=== PATIENT | male | born 1945 | race Caucasian/White ===

== ENCOUNTER 2018-11-16 11:14 | Inpatient (IN) | payer MEDICARE, OTHER ==
[~2018-11-16] VITALS: Ht 177.8 cm; Wt 84.1 kg
[2018-11-16] MEDS ORDERED: ATEN25 PO (11:32)
[2018-11-16] MEDS ORDERED: LISI5 PO (11:32)
[2018-11-16 11:55] LABS: BASOPHILS ABSOLUTE AUTO 0.07 K/mm3 (0.00-0.23); BASOPHILS PERCENT AUTO 1 % (0-2); EOSINOPHILS ABSOLUTE AUTO 0.13 K/mm3 (0.00-0.68); EOSINOPHILS PERCENT AUTO 1 % (0-6); Hematocrit 33.4 % (37.0-53.0); Hemoglobin 11.8 g/dL (13.5-17.5); IMMATURE GRAN ABSOLUTE AUTO 0.23 K/mm3 (0.00-0.10); IMMATURE GRAN PERCENT AUTO 2 % (0-1); LYMPHOCYTES PERCENT AUTO 8 % (21-46); MONOCYTES ABSOLUTE AUTO 1.52 K/mm3 (0.16-1.47); MONOCYTES PERCENT AUTO 12 % (4-13); Mean Corpuscular HGB 35.5 pg (26.0-34.0); Mean Corpuscular HGB Conc 35.3 g/dL (31.5-36.5); Mean Corpuscular Volume 101 fL (80-100); Mean Platelet Volume 12.8 fL (9.1-12.4); NEUTROPHILS ABSOLUTE AUTO 10.24 K/mm3 (1.96-9.15); NEUTROPHILS PERCENT AUTO 78 % (41-73); Platelet Count 101 K/mm3 (150-400); RDW Coefficient Variation 14.2 % (11.7-14.2); Red Blood Cell Count 3.32 M/mm3 (4.30-5.90); White Blood Cell Count 13.19 K/mm3 (4.00-11.30)
[2018-11-16 12:26] LABS: Alanine Aminotransfer (ALT/SGP 71 U/L (12-78); Albumin, Blood 2.5 g/dL (3.4-5.0); Albumin/Globulin Ratio 0.5 (0.8-1.8); Alk Phos 260 U/L (50-136); Anion Gap 13 mmol/L (6-16); Aspartate Aminotrans (AST/SGOT 77 U/L (12-37); Bilirubin, Total 1.1 mg/dL (0.1-1.0); Blood Urea Nitrogen 88 mg/dL (8-24); Bun/Creatinine Ratio 32.6 (12.0-20.0); CO2, Blood 13 mmol/L (21-32); Calcium, Blood 8.7 mg/dL (8.5-10.1); Chloride, Blood 112 mmol/L (98-108); Glomerular Filtration Rate 25 (60-); Glucose, Blood 112 mg/dL (70-99); Potassium, Blood 3.6 mmol/L (3.5-5.5); Sodium, Blood 138 mmol/L (136-145); Total Protein, Blood 7.5 g/dL (6.4-8.2); Troponin I <0.015 ng/mL (0.000-0.040)
[2018-11-16 13:34] LABS: Source, Urine Voided
[2018-11-16 14:07] LABS: Bilirubin, Urine Neg (Neg); Blood, Urine Neg (Neg); Glucose Qualitative, Urine Neg (Neg); Ketones, Urine Neg (Neg); Leukocyte Esterase, Urine Neg (Neg); Nitrite, Urine Neg (Neg); Protein, Urine Neg (Neg); Urobilinogen, Urine NORM (Normal)
[2018-11-16 14:20] LABS: Appearance, Urine Clear (Clear); Color, Urine Yellow (P-Yellow)
[2018-11-16 15:45] LABS: Source, Urine Voided
[2018-11-16 15:48] LABS: Bilirubin, Urine Neg (Neg); Blood, Urine Neg (Neg); Glucose Qualitative, Urine Neg (Neg); Ketones, Urine Neg (Neg); Leukocyte Esterase, Urine Neg (Neg); Nitrite, Urine Neg (Neg); Protein, Urine 1+ (Neg); Urobilinogen, Urine NORM (Normal)
[2018-11-16 16:01] LABS: Appearance, Urine Clear (Clear); Color, Urine Yellow (P-Yellow)
--- NOTE | 2018-11-16 16:13 | NUR ---
TELE PLACED TELE, PT NSR WITH PAC'S AT 78
[2018-11-16 16:43] LABS: Adenovirus Not Detected (NOT DETECT); Bordetella pertussis Not Detected (NOT DETECT); Chlamydophila pneumoniae Not Detected (NOT DETECT); Coronavirus 229E Not Detected (NOT DETECT); Coronavirus HKU1 Not Detected (NOT DETECT); Coronavirus NL63 Not Detected (NOT DETECT); Coronavirus OC43 Not Detected (NOT DETECT); Human Metapneumovirus Not Detected (NOT DETECT); Human Rhinovirus/Enterovirus Not Detected (NOT DETECT); Influenza A Not Detected (NOT DETECT); Influenza A/2009-H1 Not Detected (NOT DETECT); Influenza A/H1 Not Detected (NOT DETECT); Influenza A/H3 Not Detected (NOT DETECT); Influenza B Not Detected (NOT DETECT); Mycoplasma pneumoniae Not Detected (NOT DETECT); Parainfluenza Virus 1 Not Detected (NOT DETECT); Parainfluenza Virus 2 Not Detected (NOT DETECT); Parainfluenza Virus 3 Not Detected (NOT DETECT); Parainfluenza Virus 4 Not Detected (NOT DETECT); Respiratory Syncytial Virus Not Detected (NOT DETECT)
--- NOTE | 2018-11-16 17:29 | NUR ---
Echocardiogram completed.
--- NOTE | 2018-11-16 17:38 | NUR ---
SUMMARY PT ADMITTED FROM THE ER FOR PNEUMONIA, PT ABLE TO TRANSFER SELF FROM THE GURNEY TO THE BED, PT IS ALERT AND ORIENTED, STANDBY ASSIST, TAKES MEDS WHOLE, FEEDS SELF, DENIES PAIN, ORIENTED PT TO THE ROOM AND CALL SYSTEM, VSS, NO ACUTE CHANGES, WILL CONT TO MONITOR
--- NOTE | 2018-11-17 01:41 | NUR ---
PT HAD TWO EPISODES OF BRADYCARDIA IN THE 30'S. PT PULSE RATE INCREASED WHEN PT WAS AWAKE. PT REMAINED NORMOTENSIVE. WILL CONTINUE TO MONITOR.
--- NOTE | 2018-11-17 04:28 | NUR ---
SHIFT SUMMARY PT HAD NOTED EPISODES OF BRADYCARDIA IN 30'S. PT ASSESSED AND PT RATE INCREASED UPON WAKING. PT VSS. PT REPORTED NO ISSUES RELATED TO RATE IN THE PAST. PT DENIES CX PAIN OR SOB. PT HAS HAD DIFFICULTY SLEEPING THIS SHIFT. BRADYCARDIA EPISODES DID OCCUR WHEN PT WAS ASLEEP. PT CURRENTLY SLEEPING AND BREATHING EASY. CALL LIGHT IN REACH.
[2018-11-17 05:30] LABS: BASOPHILS ABSOLUTE AUTO 0.06 K/mm3 (0.00-0.23); BASOPHILS PERCENT AUTO 1 % (0-2); EOSINOPHILS ABSOLUTE AUTO 0.13 K/mm3 (0.00-0.68); EOSINOPHILS PERCENT AUTO 1 % (0-6); Hematocrit 31.3 % (37.0-53.0); Hemoglobin 10.8 g/dL (13.5-17.5); IMMATURE GRAN ABSOLUTE AUTO 0.26 K/mm3 (0.00-0.10); IMMATURE GRAN PERCENT AUTO 2 % (0-1); LYMPHOCYTES ABSOLUTE AUTO 1.36 K/mm3 (0.84-5.20); LYMPHOCYTES PERCENT AUTO 12 % (21-46); MONOCYTES ABSOLUTE AUTO 1.52 K/mm3 (0.16-1.47); MONOCYTES PERCENT AUTO 13 % (4-13); Mean Corpuscular HGB 34.8 pg (26.0-34.0); Mean Corpuscular HGB Conc 34.5 g/dL (31.5-36.5); Mean Corpuscular Volume 101 fL (80-100); Mean Platelet Volume 12.1 fL (9.1-12.4); NEUTROPHILS ABSOLUTE AUTO 8.24 K/mm3 (1.96-9.15); NEUTROPHILS PERCENT AUTO 71 % (41-73); Platelet Count 91 K/mm3 (150-400); RDW Coefficient Variation 14.4 % (11.7-14.2); RDW Standard Deviation 53.1 fL (35.1-46.3); White Blood Cell Count 11.57 K/mm3 (4.00-11.30)
[2018-11-17 05:41] LABS: Bun/Creatinine Ratio 34.8 (12.0-20.0); Calcium, Blood 8.3 mg/dL (8.5-10.1); Creatinine, Blood 1.87 mg/dL (0.60-1.20); Potassium, Blood 3.8 mmol/L (3.5-5.5)
[2018-11-17 06:52] LABS: Percent Saturation 41.9 % (20.0-50.0)
[2018-11-17 07:27] LABS: Thyroid Stimulating Hormone 1.62 uIU/mL (0.360-4.800)
--- NOTE | 2018-11-17 19:05 | NUR ---
PT. LYING QUIETLY, NO NOTEABLE CHANGES THIS SHIFT. SPOUSE HAS BEEN WITH PT. MOST OF THE DAY. IV LFA INFILTRATED AND ACCOUNTANT BOOKKEEPER AMANDA PLACED NEW POWER GLIDE.
--- NOTE | 2018-11-18 04:26 | NUR ---
SHIFT SUMMARY PT HAS SLEPT WELL T/O SHIFT. PT HAD NO COMPLAINTS OR ISSUES NOTED. PT CURRENTLY SLEEPING AND BREATHING EASY. CALL LIGHT IN REACH.
[2018-11-18 07:04] LABS: BASOPHILS ABSOLUTE AUTO 0.06 K/mm3 (0.00-0.23); BASOPHILS PERCENT AUTO 1 % (0-2); EOSINOPHILS ABSOLUTE AUTO 0.16 K/mm3 (0.00-0.68); EOSINOPHILS PERCENT AUTO 1 % (0-6); Hematocrit 30.9 % (37.0-53.0); Hemoglobin 10.7 g/dL (13.5-17.5); IMMATURE GRAN ABSOLUTE AUTO 0.43 K/mm3 (0.00-0.10); IMMATURE GRAN PERCENT AUTO 3 % (0-1); LYMPHOCYTES ABSOLUTE AUTO 1.39 K/mm3 (0.84-5.20); LYMPHOCYTES PERCENT AUTO 11 % (21-46); MONOCYTES ABSOLUTE AUTO 1.34 K/mm3 (0.16-1.47); MONOCYTES PERCENT AUTO 11 % (4-13); Mean Corpuscular HGB 34.5 pg (26.0-34.0); Mean Corpuscular HGB Conc 34.6 g/dL (31.5-36.5); Mean Corpuscular Volume 100 fL (80-100); Mean Platelet Volume 11.8 fL (9.1-12.4); NEUTROPHILS ABSOLUTE AUTO 9.17 K/mm3 (1.96-9.15); NEUTROPHILS PERCENT AUTO 73 % (41-73); Platelet Count 108 K/mm3 (150-400); RDW Coefficient Variation 14.4 % (11.7-14.2); White Blood Cell Count 12.55 K/mm3 (4.00-11.30)
[2018-11-18 07:15] LABS: Albumin, Blood 2.2 g/dL (3.4-5.0); Anion Gap 8 mmol/L (6-16); Blood Urea Nitrogen 37 mg/dL (8-24); Bun/Creatinine Ratio 30.6 (12.0-20.0); CO2, Blood 18 mmol/L (21-32); Calcium, Blood 8.5 mg/dL (8.5-10.1); Chloride, Blood 114 mmol/L (98-108); Creatinine, Blood 1.21 mg/dL (0.60-1.20); Glomerular Filtration Rate >60 (60-); Glucose, Blood 110 mg/dL (70-99); Phosphorus, Blood 2.3 mg/dL (2.5-4.9); Potassium, Blood 4.2 mmol/L (3.5-5.5); Sodium, Blood 140 mmol/L (136-145)
--- NOTE | 2018-11-18 17:55 | NUR ---
PT. ARRIVED TO FLOOR VIA BED. [place], PARTIQALLY BLIND REFUSING FOOD. BLE WITH DRESSINGS CD&I. COMFORT CARE PT. TAKES MEDS CRUSHED IN APPLESAUCE.
--- NOTE | 2018-11-18 18:23 | NUR ---
PT. SITTING IN BED VISITING WITH DAUGHTER, DINNER WAS HELD FOR PROCEDURE LATER THIS EVENING. DRINKING CONTRAST. ANOTHER TO BE GIVEN AT 2039 THEN AGAIN AT 2139. PT. A&O
--- NOTE | 2018-11-19 04:46 | NUR ---
SHIFT SUMMARY PT HAD REMAINED NPO AND DRANK HIS CONTRAST UNTIL HIS CT. PT RETURNED AND WENT TO SLEEP. PT HAS BEEN SLEEPING WELL SINCE CT. PT IS CURRENTLY SLEEPING AND BREATHING EASY. PT HAD NO ISSUES NOTED OR COMPLAINTS.
[2018-11-19 10:40] LABS: BASOPHILS ABSOLUTE AUTO 0.06 K/mm3 (0.00-0.23); BASOPHILS PERCENT AUTO 1 % (0-2); EOSINOPHILS ABSOLUTE AUTO 0.26 K/mm3 (0.00-0.68); EOSINOPHILS PERCENT AUTO 2 % (0-6); Hematocrit 29.6 % (37.0-53.0); Hemoglobin 10.2 g/dL (13.5-17.5); IMMATURE GRAN ABSOLUTE AUTO 0.65 K/mm3 (0.00-0.10); IMMATURE GRAN PERCENT AUTO 5 % (0-1); LYMPHOCYTES ABSOLUTE AUTO 1.11 K/mm3 (0.84-5.20); LYMPHOCYTES PERCENT AUTO 8 % (21-46); MONOCYTES ABSOLUTE AUTO 0.87 K/mm3 (0.16-1.47); MONOCYTES PERCENT AUTO 7 % (4-13); Mean Corpuscular HGB 34.8 pg (26.0-34.0); Mean Corpuscular HGB Conc 34.5 g/dL (31.5-36.5); Mean Corpuscular Volume 101 fL (80-100); Mean Platelet Volume 11.7 fL (9.1-12.4); NEUTROPHILS ABSOLUTE AUTO 10.26 K/mm3 (1.96-9.15); NEUTROPHILS PERCENT AUTO 78 % (41-73); Platelet Count 139 K/mm3 (150-400); RDW Coefficient Variation 14.4 % (11.7-14.2); RDW Standard Deviation 53.1 fL (35.1-46.3); Red Blood Cell Count 2.93 M/mm3 (4.30-5.90); White Blood Cell Count 13.21 K/mm3 (4.00-11.30)
[2018-11-19 10:53] LABS: International Normalized Ratio 1.36
[2018-11-19 10:57] LABS: Albumin, Blood 2.1 g/dL (3.4-5.0); Anion Gap 7 mmol/L (6-16); Blood Urea Nitrogen 25 mg/dL (8-24); Bun/Creatinine Ratio 25.7 (12.0-20.0); CO2, Blood 18 mmol/L (21-32); Calcium, Blood 7.9 mg/dL (8.5-10.1); Chloride, Blood 112 mmol/L (98-108); Creatinine, Blood 0.97 mg/dL (0.60-1.20); Glomerular Filtration Rate >60 (60-); Glucose, Blood 107 mg/dL (70-99); Phosphorus, Blood 1.9 mg/dL (2.5-4.9); Potassium, Blood 4.1 mmol/L (3.5-5.5); Sodium, Blood 137 mmol/L (136-145)
--- NOTE | 2018-11-19 16:56 | NUR ---
SUMMARY- PT A/O X3, INDEPENDANT IN HIS ROOM. DOZING ON OFF THROUGH SHIFT. LUNGS CLEAR BUT DIMINISHED, OCC DRY COUGH WITH NO PRODUCTION. TELE DC'D. TOLERATING FOOD AND FLUIDS. PLAN FOR LIVER BX 11/20 AM- UNABLE TO PERFORM TODAY BECAUSE PT HAD LOVENOX. WILL RELAY TO RN TO HOLD LOVENOX AM DOSE 11/20. AT BEDSIDE VISITING PT MOST OF THE AFTERNOON.
[2018-11-20 05:32] LABS: BASOPHILS PERCENT AUTO 1 % (0-2); EOSINOPHILS ABSOLUTE AUTO 0.42 K/mm3 (0.00-0.68); EOSINOPHILS PERCENT AUTO 3 % (0-6); Hematocrit 29.5 % (37.0-53.0); Hemoglobin 10.5 g/dL (13.5-17.5); IMMATURE GRAN ABSOLUTE AUTO 1.13 K/mm3 (0.00-0.10); IMMATURE GRAN PERCENT AUTO 7 % (0-1); LYMPHOCYTES ABSOLUTE AUTO 2.69 K/mm3 (0.84-5.20); LYMPHOCYTES PERCENT AUTO 17 % (21-46); MONOCYTES ABSOLUTE AUTO 1.01 K/mm3 (0.16-1.47); MONOCYTES PERCENT AUTO 6 % (4-13); Mean Corpuscular HGB 35.7 pg (26.0-34.0); Mean Corpuscular HGB Conc 35.6 g/dL (31.5-36.5); Mean Corpuscular Volume 100 fL (80-100); NEUTROPHILS ABSOLUTE AUTO 10.98 K/mm3 (1.96-9.15); NEUTROPHILS PERCENT AUTO 67 % (41-73); NRBC ABSOLUTE 0.02 K/mm3 (0.00-0.02); NRBC Auto 0.1 /100 WBC (0.0-0.2); RDW Coefficient Variation 14.6 % (11.7-14.2); RDW Standard Deviation 52.4 fL (35.1-46.3); Red Blood Cell Count 2.94 M/mm3 (4.30-5.90); White Blood Cell Count 16.33 K/mm3 (4.00-11.30)
[2018-11-20 05:33] LABS: Mean Platelet Volume 11.6 fL (9.1-12.4); Platelet Count 159 K/mm3 (150-400)
[2018-11-20 05:51] LABS: Alanine Aminotransfer (ALT/SGP 135 U/L (12-78); Albumin, Blood 2.1 g/dL (3.4-5.0); Albumin/Globulin Ratio 0.4 (0.8-1.8); Alk Phos 429 U/L (50-136); Anion Gap 8 mmol/L (6-16); Aspartate Aminotrans (AST/SGOT 154 U/L (12-37); Bilirubin, Total 3.2 mg/dL (0.1-1.0); Blood Urea Nitrogen 21 mg/dL (8-24); Bun/Creatinine Ratio 23.7 (12.0-20.0); CO2, Blood 18 mmol/L (21-32); Chloride, Blood 112 mmol/L (98-108); Creatinine, Blood 0.89 mg/dL (0.60-1.20); Globulin, Blood 4.7 g/dL (2.2-4.0); Glomerular Filtration Rate >60 (60-); Glucose, Blood 86 mg/dL (70-99); Potassium, Blood 4.7 mmol/L (3.5-5.5); Sodium, Blood 138 mmol/L (136-145); Total Protein, Blood 6.8 g/dL (6.4-8.2)
--- NOTE | 2018-11-20 05:53 | NUR ---
SHIFT SUMMARY NO ACUTE EVENTS OVERNIGHT. LEFT ARM POWERGLIDE PATENT WITH NO S/S OF INFECTION. PATIENT UP AD LAURA TO BATHROOM. PATIENT WITH INTERMITTENT HICCOUGHING THROUGHOUT NIGHT. WILL CONTINUE TO MONITOR.
--- NOTE | 2018-11-20 12:02 | NUR ---
PT ARRIVED BACK FROM LIVER BIOPSY, A/OX3, PLEASANT AND COOPERATIVE, APPEARS TO BE BREATHING EASILY ON RA, PT DENIES PAIN
--- NOTE | 2018-11-20 16:14 | NUR ---
PT IS A/OX3, PLEASANT AND COOPERATIVE, UP WITH MINIMAL STANDBY ASSIST TO THE BATHROOM, THE PT APPEARS TO BE BREATHING EASILY ON RA, TODAY THE PT WAS TAKEN TO CT FOR A LIVER BIOPSY AND SO FAR THIS AFTERNNON HAS TOLERATED THE PROCEDURE WELL, THE PT WAS MEDICATED X1 FOR PAIN AT THE BIOPSY SITE AND A COLD PACK AND HEAT PAD HAS BEEN APPLIED INTERMITTANTLY BY THE PT, IS AT THE BEDSIDE, CALL LIGHT IN REACH, WILL CONTINUE TO MONITOR AND ASSESS FOR CHANGES
[2018-11-21 04:54] LABS: Hematocrit 27.9 % (37.0-53.0); Hemoglobin 9.7 g/dL (13.5-17.5); Mean Corpuscular HGB 34.9 pg (26.0-34.0); Mean Corpuscular HGB Conc 34.8 g/dL (31.5-36.5); Mean Corpuscular Volume 100 fL (80-100); Mean Platelet Volume 11.1 fL (9.1-12.4); Platelet Count 196 K/mm3 (150-400); RDW Coefficient Variation 14.6 % (11.7-14.2); RDW Standard Deviation 53.2 fL (35.1-46.3); Red Blood Cell Count 2.78 M/mm3 (4.30-5.90); White Blood Cell Count 16.15 K/mm3 (4.00-11.30)
[2018-11-21 05:22] LABS: BASOPHILS ABSOLUTE MAN 0.16 K/mm3 (0.00-0.23); BASOPHILS PERCENT MAN 1 % (0-2); EOSINOPHILS ABSOLUTE MAN 0.48 K/mm3 (0.00-0.68); EOSINOPHILS PERCENT MAN 3 % (0-6); LYMPHOCYTES % ATYPICAL MANUAL 1 % (0-0); LYMPHOCYTES ABSOLUTE MAN 0.96 K/mm3 (0.84-5.20); LYMPHOCYTES PERCENT MAN 5 % (21-46); MONOCYTES PERCENT MAN 5 % (4-13); NEUTROPHILS ABSOLUTE MAN 13.72 K/mm3 (1.96-9.15); SEG NEUTROPHILS PERCENT MAN 85 % (41-73); TOTAL CELLS COUNTED 100
[2018-11-21 05:27] LABS: Anion Gap 7 mmol/L (6-16); Blood Urea Nitrogen 20 mg/dL (8-24); Bun/Creatinine Ratio 21.4 (12.0-20.0); CO2, Blood 20 mmol/L (21-32); Calcium, Blood 7.9 mg/dL (8.5-10.1); Chloride, Blood 110 mmol/L (98-108); Creatinine, Blood 0.94 mg/dL (0.60-1.20); Glomerular Filtration Rate >60 (60-); Glucose, Blood 90 mg/dL (70-99); Potassium, Blood 4.3 mmol/L (3.5-5.5); Sodium, Blood 137 mmol/L (136-145)
--- NOTE | 2018-11-21 06:29 | NUR ---
SHIFT SUMMARY PT IS A 73 Y/O MALE, ADMITTED FOR PNEUMONIA. HE IS A&O X 3, AND A SBA TO AMBULATE IN THE ROOM. PT DENIED ANY PAIN, THOUGH HE USED A HEATING PAD ON HIS ABDOMEN THROUGH THE NIGHT, NAUSEA OR SOB, THOUGH HE DID NOT SLEEP MUCH DURING THE NIGHT. HE HAD A LOW GRADE FEVER OF 100.6 IN THE EVENING, AND IT CAME DOWN TO 98.3 WITHOUT INTERVENTION. ALL OTHER VITALS STABLE. NO OTHER ACUTE CHANGES IN PT CONDITION NOTED. WILL CONTINUE TO MONITOR AND TREAT PER EMAR UNTIL HAND OFF TO DAY SHIFT.
--- NOTE | 2018-11-21 16:33 | NUR ---
PT IS A/OX3, PLEASANT AND COOPERATIVE, THE PT IS UP IND IN HIS ROOM, THE PT DENIED ANY PAIN T/O THE DAY, WAS AT THE BEDSIDE T/O THE DAY, PT APPEARS TO BE BREATHING EASILY ON RA, CALL LIGHT IN REACH, WILL CONTINUE TO MONITOR AND ASSESS FOR CHANGES
[2018-11-22 05:28] LABS: BASOPHILS ABSOLUTE AUTO 0.09 K/mm3 (0.00-0.23); BASOPHILS PERCENT AUTO 1 % (0-2); EOSINOPHILS ABSOLUTE AUTO 0.29 K/mm3 (0.00-0.68); EOSINOPHILS PERCENT AUTO 2 % (0-6); Hematocrit 27.5 % (37.0-53.0); Hemoglobin 9.5 g/dL (13.5-17.5); IMMATURE GRAN ABSOLUTE AUTO 1.07 K/mm3 (0.00-0.10); IMMATURE GRAN PERCENT AUTO 6 % (0-1); LYMPHOCYTES ABSOLUTE AUTO 1.61 K/mm3 (0.84-5.20); LYMPHOCYTES PERCENT AUTO 9 % (21-46); MONOCYTES ABSOLUTE AUTO 1.15 K/mm3 (0.16-1.47); MONOCYTES PERCENT AUTO 6 % (4-13); Mean Corpuscular HGB 34.8 pg (26.0-34.0); Mean Corpuscular HGB Conc 34.5 g/dL (31.5-36.5); Mean Corpuscular Volume 101 fL (80-100); Mean Platelet Volume 10.6 fL (9.1-12.4); NEUTROPHILS ABSOLUTE AUTO 14.16 K/mm3 (1.96-9.15); NEUTROPHILS PERCENT AUTO 77 % (41-73); Platelet Count 193 K/mm3 (150-400); RDW Coefficient Variation 14.9 % (11.7-14.2); RDW Standard Deviation 54.3 fL (35.1-46.3); Red Blood Cell Count 2.73 M/mm3 (4.30-5.90); White Blood Cell Count 18.37 K/mm3 (4.00-11.30)
[2018-11-22 06:03] LABS: Alanine Aminotransfer (ALT/SGP 81 U/L (12-78); Albumin/Globulin Ratio 0.4 (0.8-1.8); Alk Phos 336 U/L (50-136); Anion Gap 8 mmol/L (6-16); Aspartate Aminotrans (AST/SGOT 62 U/L (12-37); Blood Urea Nitrogen 18 mg/dL (8-24); Bun/Creatinine Ratio 20.8 (12.0-20.0); CO2, Blood 20 mmol/L (21-32); Calcium, Blood 7.8 mg/dL (8.5-10.1); Chloride, Blood 110 mmol/L (98-108); Creatinine, Blood 0.86 mg/dL (0.60-1.20); Globulin, Blood 4.6 g/dL (2.2-4.0); Glomerular Filtration Rate >60 (60-); Glucose, Blood 99 mg/dL (70-99); Magnesium, Blood 1.8 mg/dL (1.6-2.4); Potassium, Blood 4.3 mmol/L (3.5-5.5); Sodium, Blood 138 mmol/L (136-145); Total Protein, Blood 6.6 g/dL (6.4-8.2)
--- NOTE | 2018-11-22 06:09 | NUR ---
SHIFT SUMMARY PT A/O INDEPENDENT, NO C/O PAIN. HE WAS ABLE TO SLEEP OFF AND ON T/O NOC. CALL LIGHT IN REACH.
[2018-11-22 16:32] LABS: Alpha Feto Protein, Tumor Mkr 8.8 ng/mL (0.0-8.0); Cancer Antigen 19-9 87.8 U/mL (2.0-37.0)
--- NOTE | 2018-11-22 16:46 | NUR ---
PT AOX4 AND COOPERATIVE OF CARE. PT HAS BEEN RESTING IN BED ALL DAY WITH AT BEDSIDE. PT IS INDEPENDENT AND CALLS APPROPRIATELY. DENIES ANY PAIN AND NO DISTRESS NOTED.
--- NOTE | 2018-11-23 04:51 | NUR ---
SHIFT SUMMARY PT WAS MOVED FROM SCU TO 355. PT HAD NO ISSUES OR COMPLAINTS. PT WAS UP FREQUENTLY T/O THE SHIFT. PT CURRENTLY SLEEPING IN NO DISTRESS. CALL LIGHT IN REACH.
[2018-11-23] MEDS ORDERED: LEVFLO500 PO (09:38)
== END 2018-11-23 10:50 | disposition home or self-care (01) | DRG 194 ==
LOC: ER 11:14 → MEDS 14:01 → ENPENDDIS 11-23 08:43 → MEDS 11-23 10:50
PROVIDERS: Emergency Medicine; Internal Medicine; Internal Medicine Hematology & Oncology; ADMIT Internal Medicine
PROC: 0FB13ZX Excision of Right Lobe Liver, Percutaneous Approach, Diagnostic (ICD-10-PCS; principal; 2018-11-20)
DX: J18.9 Pneumonia, unspecified organism (principal); N17.9 Acute kidney failure, unspecified; C78.7 Secondary malignant neoplasm of liver and intrahepatic bile duct; E87.2 Acidosis; K74.60 Unspecified cirrhosis of liver; R16.0 Hepatomegaly, not elsewhere classified; R91.8 Other nonspecific abnormal finding of lung field; I10 Essential (primary) hypertension; D63.1 Anemia in chronic kidney disease; D63.8 Anemia in other chronic diseases classified elsewhere; I95.9 Hypotension, unspecified; Z79.899 Other long term (current) drug therapy; Z87.891 Personal history of nicotine dependence
CPT/HCPCS: 0099U; 36415; 47000; 71046; 71250; 74177; 77012; 80048; 80053; 80069; 81003; 82105; 82607; 82728; 82746; 83540; 83550; 83605; 83735; 83880; 84145; 84443; 84484; 85025; 85610; 86301; 87040; 88307; 88313; 88341; 88342; 93005; 93010; 93306; 96361; 96365; 98960; 99285-25; A9270; A9270-GY; J0456; J0696; J1650; J7030; J7050; J7120; Q9967

== ENCOUNTER 2019-01-25 19:15 | Inpatient (IN) | payer OTHER, MEDICARE ==
[~2019-01-25] VITALS: Ht 177.8 cm; Wt 64.4 kg
[~2019-01-25 19:15] MED LIST: ATEN25 PO; LEVFLO500 PO; LISI5 PO
[2019-01-25 19:45] LABS: BASOPHILS ABSOLUTE AUTO 0.16 K/mm3 (0.00-0.23); BASOPHILS PERCENT AUTO 1 % (0-2); EOSINOPHILS ABSOLUTE AUTO 0.16 K/mm3 (0.00-0.68); EOSINOPHILS PERCENT AUTO 1 % (0-6); Hematocrit 36.1 % (37.0-53.0); Hemoglobin 11.4 g/dL (13.5-17.5); IMMATURE GRAN ABSOLUTE AUTO 0.27 K/mm3 (0.00-0.10); IMMATURE GRAN PERCENT AUTO 1 % (0-1); LYMPHOCYTES ABSOLUTE AUTO 4.42 K/mm3 (0.84-5.20); LYMPHOCYTES PERCENT AUTO 18 % (21-46); MONOCYTES ABSOLUTE AUTO 1.43 K/mm3 (0.16-1.47); MONOCYTES PERCENT AUTO 6 % (4-13); Mean Corpuscular HGB 34.7 pg (26.0-34.0); Mean Corpuscular HGB Conc 31.6 g/dL (31.5-36.5); Mean Corpuscular Volume 110 fL (80-100); Mean Platelet Volume 10.7 fL (9.1-12.4); NEUTROPHILS ABSOLUTE AUTO 17.56 K/mm3 (1.96-9.15); NEUTROPHILS PERCENT AUTO 73 % (41-73); Platelet Count 188 K/mm3 (150-400); RDW Coefficient Variation 14.3 % (11.7-14.2); RDW Standard Deviation 57.9 fL (35.1-46.3); Red Blood Cell Count 3.29 M/mm3 (4.30-5.90)
[2019-01-25 20:03] LABS: Alanine Aminotransfer (ALT/SGP 35 U/L (12-78); Albumin, Blood 2.3 g/dL (3.4-5.0); Albumin/Globulin Ratio 0.4 (0.8-1.8); Alk Phos 234 U/L (50-136); Anion Gap 4 mmol/L (6-16); Aspartate Aminotrans (AST/SGOT 58 U/L (12-37); Bilirubin, Total 0.5 mg/dL (0.1-1.0); Blood Urea Nitrogen 23 mg/dL (8-24); Bun/Creatinine Ratio 24.6 (12.0-20.0); CO2, Blood 24 mmol/L (21-32); Calcium, Blood 12.5 mg/dL (8.5-10.1); Chloride, Blood 108 mmol/L (98-108); Creatinine, Blood 0.94 mg/dL (0.60-1.20); Globulin, Blood 5.5 g/dL (2.2-4.0); Glomerular Filtration Rate >60 (60-); Glucose, Blood 118 mg/dL (70-99); Potassium, Blood 4.7 mmol/L (3.5-5.5); Sodium, Blood 136 mmol/L (136-145); Total Protein, Blood 7.8 g/dL (6.4-8.2)
[2019-01-25] MEDS ORDERED: BENZ100A PO (20:35)
[2019-01-25] MEDS ORDERED: CODEINE-GUAIFE120 ML PO (20:36)
[2019-01-25] MEDS ORDERED: TYLECOD3 PO (20:36)
[2019-01-26 02:07] LABS: Adenovirus Not Detected (NOT DETECT); Bordetella pertussis Not Detected (NOT DETECT); Chlamydophila pneumoniae Not Detected (NOT DETECT); Coronavirus 229E Not Detected (NOT DETECT); Coronavirus HKU1 Not Detected (NOT DETECT); Coronavirus NL63 Not Detected (NOT DETECT); Coronavirus OC43 Not Detected (NOT DETECT); Human Metapneumovirus Not Detected (NOT DETECT); Human Rhinovirus/Enterovirus Not Detected (NOT DETECT); Influenza A Not Detected (NOT DETECT); Influenza A/2009-H1 Not Detected (NOT DETECT); Influenza A/H1 Not Detected (NOT DETECT); Influenza A/H3 Not Detected (NOT DETECT); Influenza B Not Detected (NOT DETECT); Mycoplasma pneumoniae Not Detected (NOT DETECT); Parainfluenza Virus 1 Not Detected (NOT DETECT); Parainfluenza Virus 2 Not Detected (NOT DETECT); Parainfluenza Virus 3 Not Detected (NOT DETECT); Parainfluenza Virus 4 Not Detected (NOT DETECT); Respiratory Syncytial Virus Not Detected (NOT DETECT)
[2019-01-26 04:20] LABS: Hematocrit 32.7 % (37.0-53.0); Hemoglobin 10.8 g/dL (13.5-17.5); Mean Platelet Volume 10.6 fL (9.1-12.4); Platelet Count 185 K/mm3 (150-400); RDW Coefficient Variation 14.4 % (11.7-14.2); RDW Standard Deviation 54.8 fL (35.1-46.3); Red Blood Cell Count 3.09 M/mm3 (4.30-5.90); White Blood Cell Count 23.42 K/mm3 (4.00-11.30)
[2019-01-26 04:23] LABS: Mean Corpuscular Volume 106 fL (80-100)
[2019-01-26 04:40] LABS: Alanine Aminotransfer (ALT/SGP 29 U/L (12-78); Albumin, Blood 2.2 g/dL (3.4-5.0); Albumin/Globulin Ratio 0.4 (0.8-1.8); Alk Phos 220 U/L (50-136); Anion Gap 6 mmol/L (6-16); Aspartate Aminotrans (AST/SGOT 48 U/L (12-37); Bilirubin, Total 0.6 mg/dL (0.1-1.0); Blood Urea Nitrogen 19 mg/dL (8-24); Bun/Creatinine Ratio 20.3 (12.0-20.0); CO2, Blood 24 mmol/L (21-32); Calcium, Blood 11.3 mg/dL (8.5-10.1); Chloride, Blood 110 mmol/L (98-108); Creatinine, Blood 0.94 mg/dL (0.60-1.20); Globulin, Blood 5.4 g/dL (2.2-4.0); Glomerular Filtration Rate >60 (60-); Glucose, Blood 105 mg/dL (70-99); Potassium, Blood 4.4 mmol/L (3.5-5.5); Sodium, Blood 140 mmol/L (136-145); Total Protein, Blood 7.6 g/dL (6.4-8.2)
--- NOTE | 2019-01-26 05:55 | NUR ---
SHIFT SUMMARY PT SLEEPING IN ROOM COMFORTABLY AT THIS TIME. NO ACUTE CHANGES IN STATSU SINCE ARRIVAL. PT SLEPT WELL IN ROOM T/O NIGHT, PT ABLE TO AMBULATE TO RR W/ SBA TO VOID. RESP EVEN UNLABORED ON RA W/ SATS >92%. PT DENIES CP OR SOB. PT DOSE HAVE HACKING CONTINUOUS COUGH, WAS MEDICATED PER EMAR, AND PT HAS BEEN ABLE TO SLEEP WELL SINCE. DENIES OTHER NEEDS. PT AWARE OF NEED FOR SPUTUM SAMPLE AND WILL ATTEMPT WHEN ABLE TO HAVE PRODUCTIVE COUGH. CALL LIGHT IN REACH.
--- NOTE | 2019-01-26 09:47 | NUR ---
PAUSES PREPARED TO GIVE CARDIZEM PER ORDERS, PRODUCTS MECHANICAL DESIGN ENGINEER REPORTED PT HAD 4.7 SECOND PAUSE. DID NOT GIVE CARDIZEM AND DR LEONARDO NOTIFIED. NOTIFIED DR NEWBY PER DR LEONARDO'S PHONE ORDER.
--- NOTE | 2019-01-26 11:36 | NUR ---
PT CONVERTED TO NSR @ APPROXIMATELY 1030 AM.
--- NOTE | 2019-01-26 15:06 | NUR ---
DR VALERO IN TO SEE PT.
--- NOTE | 2019-01-26 15:27 | NUR ---
PACER PADS PLACED.
--- NOTE | 2019-01-26 15:52 | NUR ---
pt to [employer] conservation laborer
--- NOTE | 2019-01-26 16:19 | NUR ---
REPORT CALLED TO KENDRICK Payan RN IN ICU.
--- NOTE | 2019-01-26 16:30 | NUR ---
WHITE SWEATER LEFT IN PCU 16 ROOM TAKEN TO ICU 6 ROOM. ICU NURSE INFORMED THAT IT WAS PUT IN ICU ROOM
--- NOTE | 2019-01-26 17:02 | NUR ---
Recieved report from Renata RN in PCU and Dimitris RN from Lead Business Analyst. He arrived on ICU 6 bed. Hooked up to monitor and he is SR 70 and systolic 90-100's with sat in the mid to upper 90%'s. Patient alert and able to communicate his needs. Transvenus pacer site right groin and no swelling or bleeding and dressing C/D/I.. Family at bedside.
--- NOTE | 2019-01-26 17:40 | NUR ---
At 1743 patient had several pauses and converted back to atrial fib. Patient states feels no different with pauses or rhythm change. Rate 140's. Turned on pacer.
--- NOTE | 2019-01-26 20:00 | NUR ---
ASSUMED CARE OF PT AT 1915. REPORT RECEIVED AT BEDSIDE. PT PRESENTS IN BED. ALERT AND ORIENTED. PLEASANT AND COOPERATIVE WITH CARE AND ASSESSMENT. DENIES COMPLAINTS AT THIS TIME. RIGHT GROIN ACCESS FOR TRANSVENOUS PACER SITE SOFT WITHOUT HEMATOMA OR OOZING. PER MONITORING. PT HAS CAPTURE WITH PACER APPROPRIATELY. WILL REVIEW CHART AND PLAN OF CARE FOR THIS PT.
--- NOTE | 2019-01-26 22:00 | NUR ---
PT CALLS APPROPIATELY FOR ASSIST WITH URINAL TO VOID. PT HAS A SOMEWHAT FLAT AFFECT THOUGH REMAINS APPROPRIATE. IS OPEN WITH DISCUSSING HIS CANCER, AND HAVING TO HAVE PACER. TEACHING DONE ON TRANSVENOUS PACER. DR NEWBY HAD COME BY TO SEE PT EARLIER THIS EVENING. ORDER RECEIVED FOR METOPROLOL TO HELP CONTROL HEART RATE. PT TOOK THIS DOSE. WILL MONITOR.
--- NOTE | 2019-01-27 03:00 | NUR ---
PT RESTING AT THIS TIME. NO COMPLAINTS OR S/S DISTRESS AT THIS TIME.
[2019-01-27 03:48] LABS: Hematocrit 31.6 % (37.0-53.0); Hemoglobin 10.4 g/dL (13.5-17.5); Mean Corpuscular HGB Conc 32.9 g/dL (31.5-36.5); Mean Corpuscular Volume 106 fL (80-100); Mean Platelet Volume 10.5 fL (9.1-12.4); Platelet Count 146 K/mm3 (150-400); RDW Coefficient Variation 14.6 % (11.7-14.2); RDW Standard Deviation 56.1 fL (35.1-46.3); Red Blood Cell Count 2.97 M/mm3 (4.30-5.90)
[2019-01-27 04:03] LABS: Anion Gap 6 mmol/L (6-16); Blood Urea Nitrogen 16 mg/dL (8-24); Bun/Creatinine Ratio 17.9 (12.0-20.0); CO2, Blood 23 mmol/L (21-32); Calcium, Blood 9.8 mg/dL (8.5-10.1); Chloride, Blood 112 mmol/L (98-108); Creatinine, Blood 0.89 mg/dL (0.60-1.20); Glomerular Filtration Rate >60 (60-); Glucose, Blood 87 mg/dL (70-99); Potassium, Blood 4.3 mmol/L (3.5-5.5); Sodium, Blood 141 mmol/L (136-145)
--- NOTE | 2019-01-27 06:20 | NUR ---
CALL MADE TO DR DEAN CONCERNING AM LABS. ORDERS RECEIVED FOR ELECTROLYTE REPLACEMENT. PT HAS BEEN MEDICATED SEVERAL TIMES THIS NIGHT WITH FENTANYL WITH GOOD RESULTS. ONCE WITH ZOFRAN FOR COMPLAINT OF NAUSEA. NO FURTHER COMPLAINTS AFTER ZOFRAN. PT PROVIDED WITH [place] FOR SELF SUCTIONING OF SPUTUM AND SECRETIONS THAT HE IS ABLE TO EXPECTORATE. PT STATES THAT THIS IS VERY HELPFUL FOR HIM. HAVE TITRATED OFF THE PRESSORS AT THIS TIME. WILL CONTINUE TO MONITOR FOR MAP REMAINING > 65. WILL MONITOR PT, AND WILL REPORT OFF TO ONCOMING RN.
--- NOTE | 2019-01-27 06:33 | NUR ---
PT DENIES COMPLAINTS THROUGH THIS NIGHT. HAS VOIDED Q.S. HAS AT TIMES HAD 100 PERCENT PACING AT A RATE OF 40 BPM. RETURNS QUICKLY TO AFIB WITH VARYING RATES 70'S TO 140'S. PT REMAINS ASYMPTOMATIC WITH ALL RATES AND PACING.
--- NOTE | 2019-01-27 07:43 | NUR ---
recieved report from Bhupinder ALMARAZ. Patient supine in bed with HOB at 30 degrees. He id awake and oriented and is able to communicate his needs. He is on RA and sats mid to upper 90%'s. He has 20 ga IV in RFA dressing intact and site WNL's and is infusing NS TKO. He uses urinal appropriately. He denies ant pain or current needs when in room. He has sheath in right groin fro tranvenus pacer and dressing C/D/I and no blood or swelling at site . Patient knows not to get out of bed while sheath in place.
--- NOTE | 2019-01-27 09:25 | NUR ---
Patient tolerated liquids for breakfast and was not very hungry for the rest. He has been rest with a slightly flat affect. He continues to deny any pain or needs. He converted to NSR rate 70 at 0924.
--- NOTE | 2019-01-27 11:50 | NUR ---
Patient states no apetite for lunch. His systolic 80-100's with MAP >65. He remains in SR with occassional paced beats in the 70's. Remains with flat affect and answers softly. is here at bedside.. He reamisn on RA and sats mid to upper 90%'s.
--- NOTE | 2019-01-27 14:10 | NUR ---
Patient has had friends in room. He requested some [place] juice. His systolic up to 100's and remains in SR with occassional paced beats with rate of 70's. He denies any needs or complaints of pain,
--- NOTE | 2019-01-27 16:52 | NUR ---
No significant changes with patient. He remains on bedrest. He continues in SR with occasional paced beats. He is on RA and sats mid to upper 90%'s. He denies any pain or needs and continues to stae poor apetite. He is NPO after midnight for pacer at 1230 pm.
--- NOTE | 2019-01-28 00:13 | NUR ---
NO NEW CHANGES. PT DENIES NEEDS OR WANTS AT THIS TIME. RIGHT GROIN VENOUS PACER SITE WNL, DRESSING CDI. HR 39-150. PT USING URINAL PRN WITHOUT DIFFICULTY. PT HAD DRUNK APPRX 3/4 OF AN ENSURE LIQUID SUPPLEMENT PRIOR TO MIDNIGHT. WILL CONTINUE TO MONITOR.
[2019-01-28 03:23] LABS: Hematocrit 34.7 % (37.0-53.0); Hemoglobin 11.4 g/dL (13.5-17.5); Mean Corpuscular HGB 34.8 pg (26.0-34.0); Mean Corpuscular HGB Conc 32.9 g/dL (31.5-36.5); Mean Corpuscular Volume 106 fL (80-100); Mean Platelet Volume 10.5 fL (9.1-12.4); Platelet Count 168 K/mm3 (150-400); RDW Coefficient Variation 14.6 % (11.7-14.2); RDW Standard Deviation 56.4 fL (35.1-46.3); Red Blood Cell Count 3.28 M/mm3 (4.30-5.90)
[2019-01-28 03:38] LABS: Anion Gap 7 mmol/L (6-16); Blood Urea Nitrogen 19 mg/dL (8-24); Bun/Creatinine Ratio 20.7 (12.0-20.0); CO2, Blood 23 mmol/L (21-32); Calcium, Blood 10.9 mg/dL (8.5-10.1); Chloride, Blood 111 mmol/L (98-108); Creatinine, Blood 0.92 mg/dL (0.60-1.20); Glomerular Filtration Rate >60 (60-); Glucose, Blood 92 mg/dL (70-99); Sodium, Blood 141 mmol/L (136-145)
--- NOTE | 2019-01-28 07:47 | NUR ---
SHIFT SUMMARY: PT REMAINED A+O T/O NOC. PT ASYMPTOMATIC WITH NO COMPLAINTS. HR VARIED T/O NOC RANGING FROM 39-160'S. TOWARDS END OF SHIFT PT HR INCREASED TO 160'S. DR. NEWBY NOTIFIED AND GIVEN UPDATE. NEW ORDER FOR AMIODARONE GIVEN AND STARTED. PT CONTINUES THIS AM WITH NO COMPLAINTS. REPORT GIVEN TO ONCOMING RUFINA PAIGE. DR. ABEBE IN DEPARTMENT.
--- NOTE | 2019-01-28 10:42 | NUR ---
0800 PT IS A/O WITH VSS BUT HR IS PACED TO 130-140 RANGE NOTED AT TIMES. PT PACER SITE IS INTACT AND PT ADMITS TO OCC SMALL TWINGE FROM PACER. PT VOIDING W/O DISTRESS AND INDEPENDENTLY. SMALL SMEAR OF STOOL NOTED AND PT REQUESTING ASSIST TO CLEAN UP. PT DOES HAVE DRY NONPRODUCTIVE COUGH. IVF'S NOTED PER FLOWSHEET.
--- NOTE | 2019-01-28 11:19 | NUR ---
AMIODARONE GTT DEC. NOTED
--- NOTE | 2019-01-28 15:13 | NUR ---
PT SLEEPING AND RESTING WELL W/O DISTRESS. RHYTHM CONT TO HAVE OCC A-FIB MIXED WITH PACED IN THE 40 RANGE AND THEN OCC SINUS BEATS AND BACK TO A-FIB IN THE 130-140 RANGE. IN QUIETLY VISITING.
--- NOTE | 2019-01-28 18:00 | NUR ---
PT RESTING COMFORTABLY TOWARDS END OF SHIFT. FAMILY IS AT BEDSIDE. PT IN A-FIB TYPICALLY, WILL DROP INTO NORMAL SINUS OCCASIONALLY. MEAL TRAY GIVEN.
[2019-01-28 18:03] LABS: Hematocrit 36.1 % (37.0-53.0); Hemoglobin 11.9 g/dL (13.5-17.5); Mean Corpuscular HGB 34.9 pg (26.0-34.0); Mean Corpuscular Volume 106 fL (80-100); Mean Platelet Volume 10.5 fL (9.1-12.4); Platelet Count 166 K/mm3 (150-400); RDW Coefficient Variation 14.7 % (11.7-14.2); Red Blood Cell Count 3.41 M/mm3 (4.30-5.90); White Blood Cell Count 26.76 K/mm3 (4.00-11.30)
[2019-01-28 18:26] LABS: BAND PERCENT MAN 3 % (0-8); BASOPHILS PERCENT MAN 0 % (0-2); EOSINOPHILS ABSOLUTE MAN 0.53 K/mm3 (0.00-0.68); EOSINOPHILS PERCENT MAN 2 % (0-6); LYMPHOCYTES ABSOLUTE MAN 1.33 K/mm3 (0.84-5.20); LYMPHOCYTES PERCENT MAN 5 % (21-46); MONOCYTES ABSOLUTE MAN 1.07 K/mm3 (0.16-1.47); MONOCYTES PERCENT MAN 4 % (4-13); NEUTROPHILS ABSOLUTE MAN 23.81 K/mm3 (1.96-9.15); SEG NEUTROPHILS PERCENT MAN 86 % (41-73); TOTAL CELLS COUNTED 100
--- NOTE | 2019-01-28 20:00 | NUR ---
FLAT AFFECT AND REVIEWED CONDITION AND INVOLVED PT IN CONVERSING ABOUT CONDITION. VERY GUARDED ABOUT TALKING AND ASKING QUESTIONS,.DENIES PAIN. AWARE AND FOLLOWS INSTRUCTIONS ABOUT KEEPING RT LEG STRAIGHT,.ENC TO HAVE STAFF HELP W/ REPOSITIONING AND GETTING OFF BACK. UNINTERESTED IN HELP AND SAYS HE SHIFTS HIP PERIODICALLY. RT GROIN SITE WNL . AMIODARONE GTT AT .5MG/MIN. NOTED AT THIS TIME AF RVR AT 145 RATE. SEEMS TO BE SUSTAINING., LOPRESSOR DUE PO AND BP PARAMETER ACCEPTABLE. NOTED RT AC IV SITE SEEMS A LITTLE RED AND DENIES TENDERNESS. GOOD BLOOD RETURN BUT CHANGED TO OTHER IV SITE, RT WRIST AREA WHICH WAS SALINE LOCKED NOW. FLUSHED RT AC AND NO SENSITIVITY. ENC TO COUGH AND DEEP BREATHE. EACH DEEP BREATH PROMOTES A DRY COUGH. NO SPUTUM PRODUCTION. SATS WNL ON RA.NO CP OR OTHER PAIN. HR UNRELATED TO ACTIVITY.
[2019-01-29 03:22] LABS: Hematocrit 36.4 % (37.0-53.0); Mean Corpuscular HGB 34.8 pg (26.0-34.0); Mean Corpuscular Volume 106 fL (80-100); Mean Platelet Volume 10.3 fL (9.1-12.4); Platelet Count 164 K/mm3 (150-400); RDW Coefficient Variation 14.6 % (11.7-14.2); RDW Standard Deviation 55.8 fL (35.1-46.3); Red Blood Cell Count 3.45 M/mm3 (4.30-5.90); White Blood Cell Count 24.71 K/mm3 (4.00-11.30)
[2019-01-29 03:40] LABS: Anion Gap 6 mmol/L (6-16); Blood Urea Nitrogen 24 mg/dL (8-24); Bun/Creatinine Ratio 21.1 (12.0-20.0); CO2, Blood 23 mmol/L (21-32); Calcium, Blood 11.2 mg/dL (8.5-10.1); Chloride, Blood 110 mmol/L (98-108); Creatinine, Blood 1.14 mg/dL (0.60-1.20); Glomerular Filtration Rate >60 (60-); Glucose, Blood 110 mg/dL (70-99); Sodium, Blood 139 mmol/L (136-145)
--- NOTE | 2019-01-29 05:45 | NUR ---
SHIFT SUMMARY. DENIES ANY DISCOMFORT.TURNED FOR PARTIAL BATH/ DILEEP CARE . LUNGS CLEAR. MORE DIMINISHED RT LUNG ALLISON. LAST HALF OF SHIFT RARE AF RVR . MOSTLY SR 70'S AND OCCASIONAL PACED, 40-60, NO ACUTE CHANGES. NO SPUTUM PRODUCTION.
--- NOTE | 2019-01-29 07:45 | NUR ---
ASSUMED CARE / DR ABEBE: REPORT RECEIVED FROM MARCO ANTONIO Payan RN. ASSUMED CARE OF THIS PT AT APPROX 0700. ON ASSESSMENT, THE PT IS A&O, PLEASANT & COOPERATIVE W/ CARE. PT ON RA W/ O2 SATS > 92%. MONITOR SHOWS SINUS ARRHYTHMIA W/ OCCASIONAL PACED BEATS. HE DENIES PAIN OR DYSPNEA, STS OCCASIONAL DRY COUGH. PLAN IS FOR POSSIBLE PACER PLACEMENT TODAY. PT HAS BEEN NPO SINCE MN. PROVIDER AT BEDSIDE TO SEE PT. HE STS THERE IS CONCERN FOR INFECTION VS MALIGNANCY W/ ELEVATED WBC COUNT. DR WALDRON HAS BEEN CONSULTED REGARDING THIS. NO CHANGES AT THIS TIME. WILL CONTINUE TO MONITOR & UPDATE NEEDED.
--- NOTE | 2019-01-29 08:38 | NUR ---
DR WASHINGTON: PROVIDER HAS BEEN AT BEDSIDE TO SEE PT. HE STS THAT HE WOULD LIKE THE PT's WBC COUNT TO BE UNDER 20, BUT IDEALLY UNDER 15. NO PERMANENT PACER PLACEMENT TODAY. PT CAN EAT TODAY & IS TO BE NPO AFTER MN AGAIN TONIGHT. AMIO DRIP IS DISCUSSED PT HAS RECEIVED 24 HRS OF IV AMIO AT THIS TIME. ORDERS PLACED TO START PO AMIO. TV PACER REMAINS INTACT TO R GROIN. WILL CONTINUE TO MONITOR & UPDATE NEEDED.
--- NOTE | 2019-01-29 17:27 | NUR ---
SHIFT SUMMARY: NO ACUTE CHANGES THIS SHIFT. PT REMAINS A&O, PLEASANT & COOPERATIVE. TV PACER SITE TO R GROIN REMAINS WNL W/ NO BLEEDING, BRUISING OR HEMATOMA FORMATION NOTED AROUND THE SITE. TV PACER SETTINGS UNCHANGED. MONITOR SHOWS NSR W/ OCCASIONAL PACED BEATS & PVC's. PT CONTINUES HAVING AN OCCASIONAL NONPRODUCTIVE COUGH & REMAINS ON RA W/ O2 SATS > 92%. PT VOIDING & HAVING BMs W/O DIFFICULTY. WILL CONTINUE TO MONITOR & REPORT OFF TO ONCOMING RN.
--- NOTE | 2019-01-29 18:18 | NUR ---
DR. NEWBY AT BEDSIDE, MELONY ALMARAZ UPDATED HIM OF PT'S STATUS.
--- NOTE | 2019-01-29 18:46 | NUR ---
DR NEWBY: PROVIDER AT BEDSIDE TO SEE PT. HE STS NO CHANGES AT THIS TIME & IS HOPEFUL THAT THE PT WILL BE ABLE TO RECEIVE PERMANENT PACER PLACEMENT TOMORROW.
--- NOTE | 2019-01-29 19:51 | NUR ---
ASSUMED CARE OF PT AT 1915. REPORT RECEIVED AT BEDSIDE. PT PRESENTS IN BED. ALERT AND ORIENTED. PLEASANT AND COOPERATIVE WITH CARE AND ASSESSMENT. DOES HAVE FLAT AFFECT. RIGHT GROIN SITE CHECKED WITH OFFGOING RN. NO OOZING OR HEMATOMA. WILL REVIEW CHART AND PLAN OF CARE FOR THIS PT.
--- NOTE | 2019-01-29 21:53 | NUR ---
PT CALLS APPROPRIATELY FOR URINAL AND FOR BEDPAN. HAS LOOSE SMALL BM AND IS ABLE TO VOID Q.S. PT DENINES COMPLAINTS OF PAIN OR DISTRESS. PT CURRENTLY IN A-FIB WHICH HAD CONVERTED FROM NSR TO AFIB AT APPROX 1730 THIS DAY. TRANSVENOUS PACER REMAINS WITH CAPTURE. SETTINGS HAVE BEEN CHECKED AND VERIFIED. DID TEACHING WITH PT ON ADVANCING FROM TRANSVENOUS PACER TO IMPLANTED. DISCUSSED ELEVATED WBC'S. PT DEMONSTRATES UNDERSTANDING OF PROCESS. WILL CONTINUE TO MONITOR PT.
--- NOTE | 2019-01-30 00:33 | NUR ---
PT HAS PERIODS WHEREAS HE CONVERTS TO NSR PER MONITOR. THEN REVERTS BACK TO A-FIB WITH RVR. DID TAKE HIS HS PO AMIODARONE WELL HIS METOPROLOL. HAS OCCASSIONAL PACED BEATS. PT ASYMPTOMATIC WITH VARYING HEART RATES AND RHYTHM. WILL CONTINUE TO MONITOR PT.
[2019-01-30 03:47] LABS: Hematocrit 34.3 % (37.0-53.0); Hemoglobin 11.4 g/dL (13.5-17.5); Mean Corpuscular HGB 35.2 pg (26.0-34.0); Mean Corpuscular HGB Conc 33.2 g/dL (31.5-36.5); Mean Corpuscular Volume 106 fL (80-100); Mean Platelet Volume 10.5 fL (9.1-12.4); Platelet Count 147 K/mm3 (150-400); RDW Coefficient Variation 14.6 % (11.7-14.2); RDW Standard Deviation 56.5 fL (35.1-46.3); Red Blood Cell Count 3.24 M/mm3 (4.30-5.90)
[2019-01-30 04:05] LABS: Anion Gap 6 mmol/L (6-16); Blood Urea Nitrogen 26 mg/dL (8-24); CO2, Blood 24 mmol/L (21-32); Calcium, Blood 11.9 mg/dL (8.5-10.1); Chloride, Blood 109 mmol/L (98-108); Creatinine, Blood 1.13 mg/dL (0.60-1.20); Glomerular Filtration Rate >60 (60-); Glucose, Blood 95 mg/dL (70-99); Potassium, Blood 3.8 mmol/L (3.5-5.5); Sodium, Blood 139 mmol/L (136-145)
--- NOTE | 2019-01-30 07:13 | NUR ---
PT HAS BEEN ABLE TO REST THROUGHOUT THE NIGHT. APPROPRIATE WITH CALL LIGHT TO ASSIST WITH BEDPAN AND URINAL. REMAINS MOSTLY IN A-FIB WITH RVR. OCCASSIONAL PACING. REPORT GIVEN TO ONCOMING RN.
--- NOTE | 2019-01-30 08:00 | NUR ---
Patient resting in bed and awakens easily with care. He is on RA and sats mid to upper 90%. He has 20ga IV RH and is flushed and SL'd. He also has PowerGlide in JAK dressing intact and WNL's and is infusing ABX. He is able to communicate his needs. Denies wanting breakfast , but request some orange juice. Dr Taylor by and discussed with patientabout replaceing pacer in neck..
--- NOTE | 2019-01-30 09:40 | NUR ---
Dr Taylor back and we pull TV pacer wire and cultured tip and pulled sheath and cultured tip, held pressure for 8 min and placed clear opsite over puncture site. His plan currently is to leave TV pacer out until permanant pacer placed unless patient has long pauses again. he has been A-Fib 120-140 and SR 70's back and forth.
--- NOTE | 2019-01-30 12:19 | NUR ---
Groin site C/D/I and no signs of bleeding or oozing. He has not had any recorable pauses. VSS. He is sitting up eating lunch and tolerating well. He denies any pain or needs. He has had two small BM's with urination.
--- NOTE | 2019-01-30 15:59 | NUR ---
no significant changes with patient. He has had no recordable pauses and he continues in A-Fib. Awaiting for him to wake up and will get up in recliner. at bedside
--- NOTE | 2019-01-30 19:16 | NUR ---
Gave report to Bhupinder ALMARAZ and transfered patient back to [facility] with SBA. VSS. He remains on RA and sats 94%. Patient ate 50% of dinner.
--- NOTE | 2019-01-30 20:00 | NUR ---
ASSUMED CARE OF PT AT 1915. REPORT RECEIVED IN ROOM. PT SITTING IN RECLINER CHAIR. VERY THANKFUL FOR ABILITY TO BE ABLE TO GET OUT OF BED TODAY. PT REMAINS IN A-FIB WITH RVR. DENIES COMPLAINTS AT THIS TIME. HAVE TRANSFERRED PT BACK TO BED WITH HANDS ON PIVOT TRANSFER FROM CHAIR TO BED. WILL REVIEW CHART AND PLAN OF CARE FOR THIS PT.
--- NOTE | 2019-01-31 | NUR ---
PT RESTING COMFORTABLY IN BED. MOVES SELF ABOUT IN BED ON HIS OWN. DENIES COMPLAINTS AT THIS TIME. RHYTHM VARIES FROM NSR WITH INVERTED P WAVES IN RATES OF 60 TO A FIB WITH RVR IN 130'S. NO COMPLAINTS OF CHEST PAIN OR PRESSURE. WILL CONTINUE TO MONITOR PT.
[2019-01-31 03:57] LABS: Hematocrit 34.1 % (37.0-53.0); Hemoglobin 11.1 g/dL (13.5-17.5); Mean Corpuscular HGB 34.6 pg (26.0-34.0); Mean Corpuscular HGB Conc 32.6 g/dL (31.5-36.5); Mean Corpuscular Volume 106 fL (80-100); Mean Platelet Volume 10.6 fL (9.1-12.4); Platelet Count 152 K/mm3 (150-400); RDW Coefficient Variation 14.8 % (11.7-14.2); RDW Standard Deviation 57.5 fL (35.1-46.3); Red Blood Cell Count 3.21 M/mm3 (4.30-5.90); White Blood Cell Count 25.32 K/mm3 (4.00-11.30)
[2019-01-31 04:13] LABS: Anion Gap 6 mmol/L (6-16); Blood Urea Nitrogen 28 mg/dL (8-24); Bun/Creatinine Ratio 24.3 (12.0-20.0); CO2, Blood 25 mmol/L (21-32); Chloride, Blood 108 mmol/L (98-108); Creatinine, Blood 1.15 mg/dL (0.60-1.20); Glomerular Filtration Rate >60 (60-); Glucose, Blood 96 mg/dL (70-99); Sodium, Blood 139 mmol/L (136-145)
--- NOTE | 2019-01-31 05:14 | NUR ---
PT DENIES ALL COMPLAINTS THIS NIGHT. HAS BEEN ABLE TO MOVE SELF ABOUT IN BED. NO NOTED PAUSES PER STONEWORK SUPERVISOR. HAS HAD VARYING RHYTHMS THIS NIGHT FROM SINUS ANA, SINUS ANA WITH INVERTED P WAVES, SINUS RHYTHM, AFIB, AND AFIB WITH RVR. ASYMPTOMATIC WITH ALL THIS. PT HAS VOIDED Q.S. HAD SEVERAL SMALL BM'S THIS NIGHT. WILL CONTINUE TO MONITOR PT AND WILL REPORT OFF TO ONCOMING RN.
--- NOTE | 2019-01-31 07:31 | NUR ---
Recieved report from Bhupinder ALMARAZ. Patient was just transfered up in chair with SBA for breakfast. He is alert and oriented and is able to communicate his needs. He is on RA and sats low 90%'s. He has 20ga IV to right wrist dressing intact and site WNL's, flushed and SL'd. He also has PowerGlide to JAK and dressing intact and site WNL's and is infusing Abx. He had one pause last shift and nothing else remarkable. Right groin site C/D/I and no signs of hematoma or bleeding.
--- NOTE | 2019-01-31 09:30 | NUR ---
Dr dueñas by and made med with tele. He has had no pauses or recordable events. He is back to bed and family in room. Prior to getting back to bed he was using bedside cammode and has small loose stool and 200ml clear yellow urine. VSS
[2019-01-31 09:50] LABS: Vancomycin, Trough 12.3 ug/mL (5.0-10.0)
--- NOTE | 2019-01-31 11:09 | NUR ---
Patient resting in bed with family and visitors. VSS. No events as of this am and is awaiting medical bed. Diatary came bu and patient stated he would like Ensure vanilla.
--- NOTE | 2019-01-31 12:33 | NUR ---
ASSUMED CARE: REPORT RECEIVED FROM KENDRICK Payan RN. ASSUMED CARE OF THIS PT AT APPROX 1200.
--- NOTE | 2019-01-31 18:49 | NUR ---
SHIFT SUMMARY: NO ACUTE CHANGES SINCE ASSUMING CARE THIS AFTERNOON. PT REMAINS A&O, PLEASANT & COOPERATIVE. HE IS TO BE NPO AFTER MN FOR PLANNED PERMANENT PACER PLACEMENT IN AM, PER DR WASHINGTON. PT ON RA W/ O2 SATS > 92%. MONITOR SHOWS NSR W/ HR 80s, BP STABLE. PT HAS NO GI/ COMPLAINTS. SKIN OVERALL CDI. WILL CONTINUE TO MONITOR & REPORT OFF TO ONCOMING RN.
--- NOTE | 2019-01-31 20:05 | NUR ---
ASSUMED CARE OF PT AT 1915. REPORT RECEIVED AT BEDSIDE. PT PRESENTS IN BED. ALERT AND ORIENTED. PLEASANT AND COOPERATIVE WITH CARE AND ASSESSMENT. DENIES. COMPLAINTS AT THIS TIME. CURRENTLY IN NSR. WILL OPT TO HOLD METOPROLOL DOSE THIS NIGHT SECONDARY TO PREVIOUS TWO NIGHTS HIS BLOOD PRESSURES HAVE GONE LOW AFTER RECEIVING METOPROLOL. DISCUSSED WITH PT THIS PLAN AND HE VOICES AGREEMENT. PT TO BE NPO AFTER MIDNIGHT FOR PLACEMENT OF PACEMAKER. WILL REVIEW CHART AND PLAN OF CARE FOR THIS PT.
--- NOTE | 2019-01-31 22:32 | NUR ---
PT OFFERED AND RECEIVED FULL BED BATH THIS EVENING. WAS ABLE TO ASSIST WITH PART OF BATH. DENIES ANY COMPLAINTS AT THIS TIME. WHEN DISCUSSING LESIONS ON HEAD, BACK OF NECK, BACK, AND BACK OF LEG, PT ADDS THAT HE ALSO HAS LESIONS IN HIS MOUTH. WHEN HE BRUSHES HIS TEETH, THESE LESIONS DO BLEED SOME. CALL LIGHT WITHIN REACH. WILL CONTINUE TO MONITOR PT.
--- NOTE | 2019-02-01 02:38 | NUR ---
PT USES CALL LIGHT SYSTEM APPROPRIATELY. CALLS FOR ASSIST WITH BEDPAN. HAS HAD SEVERAL SMALL SEMI SOFT STOOLS. SLIGHT RASH TO DILEEP AREA. POSSIBLE EARLY STAGE OF YEAST RASH. PT COOPERATIVE WITH CARE. HAS NO COMPLAINTS AT THIS TIME. HAVE NOT NOTED ANY PAUSES PER MONITOR. WILL CONTINUE TO MONITOR PT.
--- NOTE | 2019-02-01 08:07 | NUR ---
CARE ASSUMED CARE AND REPORT ASSUMED FROM ALAN ALMARAZ. PT SLEEPING BUT EASILY AROUSABLE. DENIES ANY PAIN OR NAUSEA THIS AM. VSS. AFIB, HR 90-130S. BP WNL. AFEBRILE. NPO THIS AM DUE TO PACEMAKER PLACEMENT. CALL LIGHT WITHIN REACH. WILL CONTINUE TO MONITOR.
[2019-02-01 08:40] LABS: BASOPHILS ABSOLUTE AUTO 0.11 K/mm3 (0.00-0.23); BASOPHILS PERCENT AUTO 1 % (0-2); EOSINOPHILS ABSOLUTE AUTO 0.17 K/mm3 (0.00-0.68); EOSINOPHILS PERCENT AUTO 1 % (0-6); Hematocrit 27.7 % (37.0-53.0); IMMATURE GRAN ABSOLUTE AUTO 0.48 K/mm3 (0.00-0.10); IMMATURE GRAN PERCENT AUTO 2 % (0-1); LYMPHOCYTES ABSOLUTE AUTO 1.61 K/mm3 (0.84-5.20); LYMPHOCYTES PERCENT AUTO 8 % (21-46); MONOCYTES ABSOLUTE AUTO 1.11 K/mm3 (0.16-1.47); MONOCYTES PERCENT AUTO 5 % (4-13); Mean Corpuscular HGB 34.4 pg (26.0-34.0); Mean Corpuscular HGB Conc 32.5 g/dL (31.5-36.5); Mean Corpuscular Volume 106 fL (80-100); Mean Platelet Volume 10.5 fL (9.1-12.4); NEUTROPHILS ABSOLUTE AUTO 18.01 K/mm3 (1.96-9.15); NEUTROPHILS PERCENT AUTO 84 % (41-73); Platelet Count 120 K/mm3 (150-400); RDW Coefficient Variation 14.9 % (11.7-14.2); RDW Standard Deviation 56.5 fL (35.1-46.3); Red Blood Cell Count 2.62 M/mm3 (4.30-5.90); White Blood Cell Count 21.49 K/mm3 (4.00-11.30)
--- NOTE | 2019-02-01 11:34 | NUR ---
REASSESSMENT PT HAS HAD FREQUENT 2-4 SECOND PAUSES THIS AM. MD WASHINGTON MADE AWARE AFTER FIRST FEW EPISODES. VERBAL ORDER TO ADMINISTER ATROPINE IF NEEDED. ATROPIN 0.5 MG IVP GIVEN AND TRANSCUTANEOUS DEFIB PADS APPLIED TO PT. PACER CURRENTLY OFF BUT ZOLL AT BEDSIDE IF NEEDED. AFEBRILE. PT DENIES PAIN. AT BEDSIDE. REMAINS NPO. CALL LIGHT WITHIN REACH. WILL CONTINUE TO MONITOR.
--- NOTE | 2019-02-01 15:34 | NUR ---
TO PIPED POCKET MACHINE OPERATOR PT TO PIPED POCKET MACHINE OPERATOR AT THIS TIME FOR PACEMAKER INSERTION. REPORT GIVEN TO KATIE AND CANDIS HERNANDEZ.
--- NOTE | 2019-02-01 18:10 | NUR ---
RETURN FROM [facility]: PT RETURNED FROM PACER PLACEMENT PROCEDURE AT APPROX 1800. ON ARRIVAL, HE IS A&O, PLEASANT & COOPERATIVE. PER REPORT, SINGLE LEAD PACER WAS PLACED W/ INCISION NOTED TO L UPPER CHEST WALL. AREA SLIGHTLY TENDER TO PALPATION W/ SMALL AMNT OF SWELLING NOTED. 1 CM AREA OF SS DRAINAGE NOTED TO DRESSING IS UNCHANGED SINCE PT ARRIVAL. HYPOTENSIVE ON ARRIVAL, PER REPORT, DR WASHINGTON IS AWARE & OKAY W/ HYPOTENSION LONG MAP REMAINS > 60. PT HAS NO DIZZINESS OR LIGHTHEADEDNESS R/T HYPOTENSION. 1 MG VERSED & 25 MCG FENTANYL GIVEN FOR CONSCIOUS SEDATION PER REPORT. ZOSYN INFUSING ON ARRIVAL. PACER SITE PRECAUTIONS HAVE BEEN DISCUSSED W/ THE PT & HE VERBALIZES UNDERSTANDING OF THIS. WILL CONTINUE TO MONITOR & REPORT OFF TO PRIMARY RN.
--- NOTE | 2019-02-01 20:28 | NUR ---
PT RESTING IN BED. NO COMPLAINTS. PACER TO LCW HAS GAUZE WITH CLEAR OCCLUSIVE DRESSING. DRESSING IS DRY AND INTACT. NO SIGNS OF BLEEDING. SLING PLACED TO L ARM. PT HAS BEEN HYPOTENSIVE, HOLDING METOPROLOL FOR NOW.
--- NOTE | 2019-02-01 22:39 | NUR ---
DR. WASHINGTON CALLED TO CHECK ON THE PT. LET HIM KNOW THE METOPROLOL WAS HELD TONIGHT DUE TO HYPOTENSION.
--- NOTE | 2019-02-02 05:59 | NUR ---
SUMMARY PT DID WELL T/O THE NIGHT. NO ISSUE WITH PACEMAKER. PT HAS NO COMPLAINTS.
[2019-02-02 06:49] LABS: BASOPHILS ABSOLUTE AUTO 0.23 K/mm3 (0.00-0.23); BASOPHILS PERCENT AUTO 1 % (0-2); Hematocrit 34.6 % (37.0-53.0); Hemoglobin 11.6 g/dL (13.5-17.5); LYMPHOCYTES PERCENT AUTO 9 % (21-46); MONOCYTES ABSOLUTE AUTO 2.61 K/mm3 (0.16-1.47); MONOCYTES PERCENT AUTO 6 % (4-13); Mean Corpuscular HGB 34.7 pg (26.0-34.0); Mean Corpuscular HGB Conc 33.5 g/dL (31.5-36.5); Mean Corpuscular Volume 104 fL (80-100); RDW Coefficient Variation 15.2 % (11.7-14.2); RDW Standard Deviation 56.3 fL (35.1-46.3); Red Blood Cell Count 3.34 M/mm3 (4.30-5.90); White Blood Cell Count 42.13 K/mm3 (4.00-11.30)
[2019-02-02 06:51] LABS: EOSINOPHILS ABSOLUTE AUTO 0.23 K/mm3 (0.00-0.68); EOSINOPHILS PERCENT AUTO 1 % (0-6); IMMATURE GRAN ABSOLUTE AUTO 1.85 K/mm3 (0.00-0.10); IMMATURE GRAN PERCENT AUTO 4 % (0-1); Mean Platelet Volume 10.9 fL (9.1-12.4); NEUTROPHILS ABSOLUTE AUTO 33.51 K/mm3 (1.96-9.15); NEUTROPHILS PERCENT AUTO 80 % (41-73)
[2019-02-02 08:31] LABS: Vancomycin, Trough 18.5 ug/mL (5.0-10.0)
--- NOTE | 2019-02-02 09:08 | NUR ---
DR ALTAMIRANO CALLED REGARDING NEW AFIB W RVR, RATE 120-150'S. SOME HYPOTENSION. PT DENIES DIZZINESS. PT C/O PAIN 01/15 TO INCISION AREA. DRSG WITH SMALL AMT OF DRIED DRAINAGE. RIGHT ARM IN SLING. WILL TRY TYLENOL AND ICE. PER DR ALTAMIRANO; GIVE PO LOPRESSOR.
--- NOTE | 2019-02-02 10:13 | NUR ---
DR WASHINGTON IN TO SEE PT. HE INQUIRED ABOUT AN ID CONSULT; WILL ASK HOSPITALIST ABOUT THIS. CHEST XRAY 2 VIEW MAY BE DONE LATER AFTER PT OOB TO CHAIR AND STABLE. TYLENOL GIVEN FOR DISCOMFORT. ICE TO LEFT CHEST PRN. PT VERY WEAK, WILL ASK ABOUT PT. PT HAS DRY NON PRODUCTIVE COUGH.
--- NOTE | 2019-02-02 10:32 | NUR ---
UPDATE GIVEN TO DR SPRINGER OVER THE PHONE. PT, TRAMADOL, AND TESSALON PERLES ORDERED. ID WILL BE CONSIDERED ON MONDAY IF THERE CONTINUES TO BE AN ISSUE WITH INFECTION.
--- NOTE | 2019-02-02 19:37 | NUR ---
PT OOB TO CHAIR FOR ABOUT 2 HOURS TODAY. ABLE TO BEAR WEIGHT, BUT VERY WEAK, NEEDS MAX ASSIST FOR TRANSFERS. PT WORKED WITH PATIENT TODAY. RHYTHM CHANGED FROM AFIB/FLUTTER TO NSR TO PACED T/O SHIFT. PT NOW IN SINUS RHYTHM W RATE 60'S. TRAMADOL WORKED WELL FOR HIS PAIN, AND TESSELON PERLES WORKED WELL FOR HIS COUGH. OVERALL PT DID WELL TODAY.
--- NOTE | 2019-02-02 20:22 | NUR ---
PT RESTING IN BED. NO COMPLAINTS. L ARM IN SLING. DRESSING OVER PACEMAKER IS C/D/I. NO SIGN OF DISTRESS.
[2019-02-03 03:50] LABS: BASOPHILS ABSOLUTE AUTO 0.21 K/mm3 (0.00-0.23); BASOPHILS PERCENT AUTO 1 % (0-2); EOSINOPHILS PERCENT AUTO 1 % (0-6); Hematocrit 33.9 % (37.0-53.0); Hemoglobin 10.9 g/dL (13.5-17.5); IMMATURE GRAN PERCENT AUTO 3 % (0-1); LYMPHOCYTES ABSOLUTE AUTO 2.89 K/mm3 (0.84-5.20); LYMPHOCYTES PERCENT AUTO 9 % (21-46); MONOCYTES ABSOLUTE AUTO 1.84 K/mm3 (0.16-1.47); MONOCYTES PERCENT AUTO 6 % (4-13); Mean Corpuscular HGB 35.5 pg (26.0-34.0); Mean Corpuscular HGB Conc 32.2 g/dL (31.5-36.5); Mean Corpuscular Volume 110 fL (80-100); Mean Platelet Volume 10.7 fL (9.1-12.4); NEUTROPHILS ABSOLUTE AUTO 26.43 K/mm3 (1.96-9.15); NEUTROPHILS PERCENT AUTO 81 % (41-73); Platelet Count 150 K/mm3 (150-400); RDW Coefficient Variation 15.6 % (11.7-14.2); RDW Standard Deviation 61.3 fL (35.1-46.3); Red Blood Cell Count 3.07 M/mm3 (4.30-5.90); White Blood Cell Count 32.77 K/mm3 (4.00-11.30)
--- NOTE | 2019-02-03 06:28 | NUR ---
SUMMARY PT RESTING IN BED. NO COMPLAINTS THIS AM. NO CHANGES THROUGH THE NIGHT.
--- NOTE | 2019-02-03 07:19 | NUR ---
ASSUMED CARE REPORT FROM RUFINA MARION. PATIENT IS SLEEPING.
--- NOTE | 2019-02-03 08:39 | NUR ---
MD VISIT DR. SPRINGER IN AT 0800. TELE DISCONTINUED. PARAMETERS GIVEN FOR METOPROLOL
--- NOTE | 2019-02-03 14:05 | NUR ---
REPORT GIVEN TO RUFINA TERRY. PATIENT WILL BE TRANSFERRED IN BED BY [facility] TO [facility]
--- NOTE | 2019-02-03 17:24 | NUR ---
PT TRANFERED TO MEDICAL FLOOR THIS AFTERNOON. PT HAD FAMILY PRESENT WHEN HE ARRIVED TO ROOM. PT AND FAMILY VISITED IN ROOM. FAMILY LEFT AND PT RESTING IN ROOM. PT HAS FLAT AFFECT. PT A/O WITH NO ADDITIONAL NEEDS AT THIS TIME. WILL CONTINUE TO MONITOR.
--- NOTE | 2019-02-04 05:46 | NUR ---
SHIFT SUMMARY PT IS A 74 Y/O MALE, ADMITTED FOR SEPSIS. HE IS A&O X 4, THOUGH WITH A FLAT AND DEPRESSED AFFECT. PT IS ON BEDREST, WITH NO DESIRE TO GET OUT OF BED. NO COMPLAINTS OF ACUTE PAIN, NAUSEA OR SOB. VITAL SIGNS STABLE. NO OTHER ACUTE CHANGES IN PT CONDITION NOTED. WILL CONTINUE TO MONITOR AND TREAT PER EMAR UNTIL HAND OFF TO DAY SHIFT RN.
[2019-02-04 06:57] LABS: BASOPHILS ABSOLUTE AUTO 0.22 K/mm3 (0.00-0.23); BASOPHILS PERCENT AUTO 1 % (0-2); EOSINOPHILS ABSOLUTE AUTO 0.34 K/mm3 (0.00-0.68); EOSINOPHILS PERCENT AUTO 1 % (0-6); Hemoglobin 9.9 g/dL (13.5-17.5); IMMATURE GRAN ABSOLUTE AUTO 1.34 K/mm3 (0.00-0.10); IMMATURE GRAN PERCENT AUTO 4 % (0-1); LYMPHOCYTES ABSOLUTE AUTO 2.79 K/mm3 (0.84-5.20); LYMPHOCYTES PERCENT AUTO 9 % (21-46); MONOCYTES ABSOLUTE AUTO 1.83 K/mm3 (0.16-1.47); MONOCYTES PERCENT AUTO 6 % (4-13); Mean Corpuscular HGB 35.2 pg (26.0-34.0); Mean Corpuscular HGB Conc 31.9 g/dL (31.5-36.5); Mean Corpuscular Volume 110 fL (80-100); Mean Platelet Volume 10.6 fL (9.1-12.4); NEUTROPHILS ABSOLUTE AUTO 26.41 K/mm3 (1.96-9.15); NEUTROPHILS PERCENT AUTO 80 % (41-73); NRBC ABSOLUTE 0.02 K/mm3 (0.00-0.02); NRBC Auto 0.1 /100 WBC (0.0-0.2); Platelet Count 146 K/mm3 (150-400); RDW Coefficient Variation 15.6 % (11.7-14.2); Red Blood Cell Count 2.81 M/mm3 (4.30-5.90); White Blood Cell Count 32.93 K/mm3 (4.00-11.30)
[2019-02-04 07:17] LABS: Anion Gap 5 mmol/L (6-16); Blood Urea Nitrogen 41 mg/dL (8-24); Bun/Creatinine Ratio 34.7 (12.0-20.0); CO2, Blood 26 mmol/L (21-32); Calcium, Blood 13.4 mg/dL (8.5-10.1); Chloride, Blood 106 mmol/L (98-108); Creatinine, Blood 1.18 mg/dL (0.60-1.20); Glomerular Filtration Rate >60 (60-); Glucose, Blood 76 mg/dL (70-99); Potassium, Blood 4.9 mmol/L (3.5-5.5); Sodium, Blood 137 mmol/L (136-145)
--- NOTE | 2019-02-04 16:46 | NUR ---
Initial Visit: Palliative Care Consult for Advanced Care Planning and Symptom Management. Spoke with Dr Ogden and discussed case prior to Pt visit. Dr Ogden expresses concerns regarding Pt may being experiencing depression. Spoke with bedside nurse Maral prior to visit and discussed case. Maral also expressed concerns if Pt may be experiencing depression. Spoke with Aleja and discussed case. Pt is sitting on edge of bed upon arrival. He is A&O and denies pain at this time. Pt denies anxiety and nausea as well. Pt has flat affect but denies depression. Pt's Amalia and daughter Amee are present during visit. Both report this is Pt's normal affect and does not feel he is depressed. Engaged in therapeutic discussion regarding advanced care planning. Pt is a that served in the [employer] during . This RN thanked him for his service. Pt lives at home with his and reports adequate support from his and daughter. Discussed the importance for halfway planning. Educated on disease process and the possibility for extra assistance in the home as the disease process takes its coarse. Family reports appointment with Dr Mclean soon. Educated on the importance of routine conversations with Dr Mclean in order to plan accordingly. Daughter Amee tearful at times and this RN offered emotional support. Suggested to Pt and family the importance of expressing fears and concerns with each other. Pt and family report no concerns at this time. Spoke with home care physical therapist Page during visit via voicera to answer discharge questions for family. Left Palliative Care contact information with Pt's and instructed to call with any questions or concerns. Palliative Care will remain available.
--- NOTE | 2019-02-04 18:02 | NUR ---
SHIFT SUMMARY PT AWAKE DURING SHIFT REPORT. LAB OBTAINING AM LABS, PG DID NOT DRAW. CRITICAL CA++ LEVEL CALLED SHORTLY AFTER LAB RESULTS COMPLETE. DR SPRINGER NOTIFIED; NO NEW ORDERS. HIGH CALCIUM LEVEL R/T CANCER. PT WITH VERY FLAT AFFECT. MINIMAL COMMUNICATION WHICH CAUSES HIM TO START COUGHING. PT HAD BEEN USING URINAL IN BED AND BEDPAN FOR BM'S, PT DOES NOT WANT TO GET UP. P/T ASSISTED PT OOB, USING GAIT BELT AND FWW. PT TO GET OOB AND TO [facility] TO INCREASE STRENGTH. C/M IN TO SEE PT TODAY WELL. PT REQUESTING TO GO TO [facility] AT D/C. LUNGS T/O DIMINISHED, TIGHT, AND WITH SCATTERED WHEEZES. FAMILY IN TO SEE PT MOST OF DAY. PALLATIVE CARE ALSO CHECKED ON PT AND FAMILY. NO C/O. DRSG TO LCW INTACT FROM RECENT PACER PLACEMENT. PT HAS DENIED PAIN. TUMOR LIKE LUMPS ON HEAD AND BACK. NO FURTHER NEEDS. CALL LT IN REACH.
--- NOTE | 2019-02-04 23:22 | NUR ---
Patient had a very large BM that filled up his attends with dark bloody stool, liquid gritty like. Cleaned him up after getting a stool sample. called MD Bernal who states she will come up and test if for blood. Informed charge authorizer.
[2019-02-05 01:10] LABS: BASOPHILS ABSOLUTE AUTO 0.19 K/mm3 (0.00-0.23); BASOPHILS PERCENT AUTO 1 % (0-2); EOSINOPHILS ABSOLUTE AUTO 0.22 K/mm3 (0.00-0.68); EOSINOPHILS PERCENT AUTO 1 % (0-6); Hematocrit 29.1 % (37.0-53.0); Hemoglobin 9.5 g/dL (13.5-17.5); IMMATURE GRAN ABSOLUTE AUTO 1.37 K/mm3 (0.00-0.10); IMMATURE GRAN PERCENT AUTO 4 % (0-1); LYMPHOCYTES ABSOLUTE AUTO 2.96 K/mm3 (0.84-5.20); LYMPHOCYTES PERCENT AUTO 9 % (21-46); MONOCYTES PERCENT AUTO 6 % (4-13); Mean Corpuscular HGB 35.7 pg (26.0-34.0); Mean Corpuscular HGB Conc 32.6 g/dL (31.5-36.5); Mean Corpuscular Volume 109 fL (80-100); Mean Platelet Volume 10.6 fL (9.1-12.4); NEUTROPHILS ABSOLUTE AUTO 25.96 K/mm3 (1.96-9.15); NEUTROPHILS PERCENT AUTO 80 % (41-73); NRBC ABSOLUTE 0.02 K/mm3 (0.00-0.02); NRBC Auto 0.1 /100 WBC (0.0-0.2); Platelet Count 156 K/mm3 (150-400); RDW Coefficient Variation 15.9 % (11.7-14.2); RDW Standard Deviation 61.8 fL (35.1-46.3); Red Blood Cell Count 2.66 M/mm3 (4.30-5.90)
--- NOTE | 2019-02-05 01:21 | NUR ---
PATIENT CALLED TO GET UP TO USE THE BATHROOM. ONCE UP TO SIDE OF BED, HE STARTED TO HAVE A NOSE BLEED, DRIPPING. HAD HIM HOLD PRESSURE. ANOTHER BLOODY STOOL NOTED. PATIENT VERY WEAK AND UNSTEADY ON HIS FEET. NEW ATTENDS PLACED. GOWN CHANGED. PROTONIX IV GIVEN PER ORDERS. CALLED DR. HANSON AND REPORTED NOSE BLEED AND ANOTHER BLOODY STOOL MEDIUM IN SIZE. HE REPORTS THAT BLOOD WORK DOES SHOW THAT HE IS TRENDING DOWN, WANTS SET OF VITALS AND IF LOWER TO CALL HIM BACK FOR ORDER FOR FLUIDS. CALLED [employer] AND ASKED FOR SET OF VITALS.
[2019-02-05 01:31] LABS: Anion Gap 6 mmol/L (6-16); Blood Urea Nitrogen 37 mg/dL (8-24); Bun/Creatinine Ratio 33.6 (12.0-20.0); CO2, Blood 24 mmol/L (21-32); Calcium, Blood 13.3 mg/dL (8.5-10.1); Chloride, Blood 108 mmol/L (98-108); Glomerular Filtration Rate >60 (60-); Glucose, Blood 89 mg/dL (70-99); Potassium, Blood 4.7 mmol/L (3.5-5.5); Sodium, Blood 138 mmol/L (136-145)
--- NOTE | 2019-02-05 03:39 | NUR ---
HR IS ELEVATED FROM 101-126. CALL[address] DR. HANSON STATES TO GIVE THE METOPROLOL THAT WAS WITH HELD DUE TO LOW BP, SINCE BP IS WNL. WILL DO.
[2019-02-05 04:51] LABS: BASOPHILS ABSOLUTE AUTO 0.18 K/mm3 (0.00-0.23); BASOPHILS PERCENT AUTO 1 % (0-2); EOSINOPHILS ABSOLUTE AUTO 0.19 K/mm3 (0.00-0.68); EOSINOPHILS PERCENT AUTO 1 % (0-6); Hematocrit 29.6 % (37.0-53.0); Hemoglobin 9.6 g/dL (13.5-17.5); IMMATURE GRAN ABSOLUTE AUTO 1.28 K/mm3 (0.00-0.10); IMMATURE GRAN PERCENT AUTO 4 % (0-1); LYMPHOCYTES ABSOLUTE AUTO 2.84 K/mm3 (0.84-5.20); LYMPHOCYTES PERCENT AUTO 9 % (21-46); MONOCYTES ABSOLUTE AUTO 1.65 K/mm3 (0.16-1.47); MONOCYTES PERCENT AUTO 5 % (4-13); Mean Corpuscular HGB 34.7 pg (26.0-34.0); Mean Corpuscular HGB Conc 32.4 g/dL (31.5-36.5); Mean Corpuscular Volume 107 fL (80-100); Mean Platelet Volume 10.8 fL (9.1-12.4); NEUTROPHILS ABSOLUTE AUTO 24.93 K/mm3 (1.96-9.15); NEUTROPHILS PERCENT AUTO 80 % (41-73); Platelet Count 158 K/mm3 (150-400); RDW Coefficient Variation 15.9 % (11.7-14.2); RDW Standard Deviation 59.1 fL (35.1-46.3); Red Blood Cell Count 2.77 M/mm3 (4.30-5.90); White Blood Cell Count 31.07 K/mm3 (4.00-11.30)
--- NOTE | 2019-02-05 05:19 | NUR ---
SHIFT SUMMARY: 74 Y/O MALE, WHO IS A ONE ASSIST TO BSC AND USE OF URINAL. MARIA L HAS HAD SEVERAL CHANGES TONIGHT, STARTING WITH A LARGE BLOODY STOOL AT THE BEGINNING OF SHIFT, AND ANOTHER ONE LATER ON. WAS NOTIFIED IMMEDIALTY AFTER THE FIRST ONE, GENARO HAMMOND CAME TO THE ROOM AND TESTED IT WHICH WAS POSITIVE OF BLOOD. SHE ORDERED LAB WORK, TYPE AND CROSS, PROTONIX. PROTONIX WAS GIVEN. DRIP WAS STARTED. HH ONLY DROPPED A SMALL AMOUNT FROM 9.9/31 TO 9.5/29.1. METOPROLOL WAS HELD DUE TO HYPOTENSION IN THE 90'S. BUT LATER GIVEN WHEN BLOOD PRESSURE WAS STABLE AND HR SHOT UP TO 126. HE WAS STARTED ON 2 LITERS OF OXYGEN FOR SATS IN THE HIGH 80'S. GI CONSULT WAS ORDERED, ATTEMPTED TO CALL IT IN BUT WAS TOLD TO CALL DR. VILLANUEVA OFFICE IN AM AFTER 8 AM THEY WERE NOT TAKING ANY CONSULTS FOR GI TONIGHT. WILL REPORT TO DAY SHIFT RN.
--- NOTE | 2019-02-05 17:21 | NUR ---
SHIFT SUMMARY PT RESTING QUIETLY DURING SHIFT REPORT. DENIES NEEDS. NO C/O. REMAINS VERY WEAK. PER SHIFT REPORT, PT HAD BLOODY STOOL. GI CONSULT ORDERED. CALLED [facility] AT START OF SHIFT, BUT INSTRUCTED TO CALL OFFICE WHEN OPEN. CONSULT CALLED TO DR VILLANUEVA PER ORDERS. PT PLACED ON PROTONIX DRIP DURING NOC SHIFT. REPORTED TODAY THAT PT HAS BLEEDING CANCER TUMORS IN HIS MOUTH. DENIES ANY PAIN FROM THEM. HAS DIFFICULTY EATING D/T HIS DENTURES NO LONGER FITTING FROM WEIGHT LOSS WELL THE TUMORS. DR WASHINGTON IN TO [facility] ON PT AND PACER PLACEMENT SITE. INFORMED DR WASHINGTON THAT METOPROLOL WAS HELD LAST NOC D/T PERAMETERS ON BP. DR WASHINGTON ORDERED PERAMETERS CHANGED AND NOW DOSE OF METOPROLOL GIVEN; DONE PER ORDERS. PT SEEMS TO HAVE COUGHING EPISODES EACH TIME HE IS UP OR HAS TO TALK. COUGH SYRUP GIVEN THIS AM, BUT LATER EPISODE PT DECLINED D/T TASTE. TESSALON GIVEN LATER. PT REPORTED THAT IT HELPS FOR A WHILE. P/T IN TO SEE PT AND ENCOURAGED HIM TO GET UP TO CHAIR. PT SAT IN CHAIR BESIDE FOR A WHILE, BEFORE WANTING TO GO BACK TO BED. PT REFUSED TO GET UP TO BSC AT START OF SHIFT AND REQUESTED THE BED BANDA INSTEAD. PT ENCOURAGE TO GET UP TO BUILD STRENGTH WILL BE UNABLE TO CARE FOR PT AT HOME OTHERWISE. PT HAS BEEN SLEEPING MORE TODAY THAN YESTERDAY. REPORTED THAT PT HAS BEEN SLEEPING MORE EACH DAY THAT HE HAS BEEN HERE. PT REPORTED THAT HE DOES NOT FEEL WELL. PALLATIVE CARE CONTACTED TO DISCUSS POSSIBLITY OF HOSPICE. WILL WAIT FOR GI CONSULT TO DISCUSS. FAMILY REMAINS AT BS. CALL LT IN REACH.
[2019-02-06 05:20] LABS: BASOPHILS ABSOLUTE AUTO 0.21 K/mm3 (0.00-0.23); BASOPHILS PERCENT AUTO 1 % (0-2); Hemoglobin 8.9 g/dL (13.5-17.5); LYMPHOCYTES ABSOLUTE AUTO 3.08 K/mm3 (0.84-5.20); LYMPHOCYTES PERCENT AUTO 9 % (21-46); MONOCYTES ABSOLUTE AUTO 1.69 K/mm3 (0.16-1.47); MONOCYTES PERCENT AUTO 5 % (4-13); Mean Corpuscular HGB 34.5 pg (26.0-34.0); Mean Corpuscular HGB Conc 31.8 g/dL (31.5-36.5); Mean Corpuscular Volume 109 fL (80-100); Mean Platelet Volume 10.6 fL (9.1-12.4); Platelet Count 148 K/mm3 (150-400); RDW Coefficient Variation 16.3 % (11.7-14.2); RDW Standard Deviation 61.4 fL (35.1-46.3); Red Blood Cell Count 2.58 M/mm3 (4.30-5.90); White Blood Cell Count 33.92 K/mm3 (4.00-11.30)
[2019-02-06 05:22] LABS: EOSINOPHILS ABSOLUTE AUTO 0.22 K/mm3 (0.00-0.68); EOSINOPHILS PERCENT AUTO 1 % (0-6); IMMATURE GRAN ABSOLUTE AUTO 1.42 K/mm3 (0.00-0.10); IMMATURE GRAN PERCENT AUTO 4 % (0-1); NEUTROPHILS PERCENT AUTO 81 % (41-73)
--- NOTE | 2019-02-06 06:47 | NUR ---
02/06/19 0500 SLEEPING WELL. VITALS STABLE. UNEVENTFUL NIGHT.
--- NOTE | 2019-02-06 07:41 | NUR ---
02/06/19 0640 ONLY ONE BLACK LOOSE STOOL OBSERVED THIS SHIFT.
[2019-02-06 07:58] LABS: Anion Gap 3 mmol/L (6-16); Blood Urea Nitrogen 32 mg/dL (8-24); Bun/Creatinine Ratio 28.1 (12.0-20.0); CO2, Blood 24 mmol/L (21-32); Calcium, Blood 12.5 mg/dL (8.5-10.1); Chloride, Blood 111 mmol/L (98-108); Creatinine, Blood 1.14 mg/dL (0.60-1.20); Glomerular Filtration Rate >60 (60-); Glucose, Blood 84 mg/dL (70-99); Potassium, Blood 4.5 mmol/L (3.5-5.5); Sodium, Blood 138 mmol/L (136-145)
--- NOTE | 2019-02-06 17:06 | NUR ---
SUMMARY PT IS A/O X4, STATE CONTINUING WEAKNESS/FATIGUE. AFFECT FLAT, DEPRESSED. HX LUNG CA w METS. NPO X WATER & ICE CHIPS @ ONSET OF SHIFT THE NPO @ 1400 FOR EGD THIS EVENING w DR VILLANUEVA. HE HAS HAD NO BM'S TODAY. MULT URINE VOIDS. LUNGS CLEAR DECREASED, THIS AM 86% RA, O2 @ 2L PROVIDED, BIOX >90%, STATE NO SOB. DRY COUGH @ X'S, TESSALON GIVEN THIS AM. HE STATE NO PAIN T/O DAY. 2 BEDSIDE MOST OF DAY, SUPPORTIVE. VSS, AFEBRILE.
--- NOTE | 2019-02-06 18:37 | NUR ---
02/06/19 1837 Kristin Buckley History, Chart, Medications and Allergies reviewed before start of procedure. 3-LEAD EKG REVIEWED WITH PHYSICIAN PRIOR TO START OF PROCEDURE. MONITOR INTACT WITH CONTINUOUS PULSE OXIMETRY AND INTERMITTENT BP. O2 VIA N/C INTACT THROUGHOUT SEDATION/PROCEDURE. PATIENT DETERMINED TO BE ASA APPROPRIATE FOR PROPOFOL SEDATION PRIOR TO START OF PROCEDURE BY DR. VILLANUEVA.
--- NOTE | 2019-02-06 18:48 | NUR ---
History, Chart, Medications and Allergies reviewed before start of procedure. LS CLEAR, DIMINISHED IN BASES. PT COUGHS WITH EVERY DEEP BREATH. Patient confirms NPO status and agrees with scheduled surgery. Pre-Op teaching done. Pt verbalizes understanding.
--- NOTE | 2019-02-06 19:27 | NUR ---
transfer report from Kristin ALMARAZ post endoscopy recieved. 3 bands were appied to varicies & several bx of gastric nodules taken. Await return of PT post upper endo for gastric bleeding.
[2019-02-07 05:29] LABS: BASOPHILS ABSOLUTE AUTO 0.19 K/mm3 (0.00-0.23); BASOPHILS PERCENT AUTO 1 % (0-2); EOSINOPHILS ABSOLUTE AUTO 0.18 K/mm3 (0.00-0.68); EOSINOPHILS PERCENT AUTO 1 % (0-6); Hematocrit 30.7 % (37.0-53.0); Hemoglobin 9.6 g/dL (13.5-17.5); IMMATURE GRAN ABSOLUTE AUTO 1.13 K/mm3 (0.00-0.10); IMMATURE GRAN PERCENT AUTO 4 % (0-1); LYMPHOCYTES ABSOLUTE AUTO 2.57 K/mm3 (0.84-5.20); LYMPHOCYTES PERCENT AUTO 8 % (21-46); MONOCYTES ABSOLUTE AUTO 1.54 K/mm3 (0.16-1.47); MONOCYTES PERCENT AUTO 5 % (4-13); Mean Corpuscular HGB 35.6 pg (26.0-34.0); Mean Corpuscular HGB Conc 31.3 g/dL (31.5-36.5); Mean Platelet Volume 10.5 fL (9.1-12.4); NEUTROPHILS ABSOLUTE AUTO 26.96 K/mm3 (1.96-9.15); NEUTROPHILS PERCENT AUTO 83 % (41-73); Platelet Count 146 K/mm3 (150-400); RDW Standard Deviation 66.6 fL (35.1-46.3); White Blood Cell Count 32.57 K/mm3 (4.00-11.30)
[2019-02-07 05:37] LABS: Mean Corpuscular Volume 114 fL (80-100)
[2019-02-07 06:04] LABS: Bun/Creatinine Ratio 22.7 (12.0-20.0); Creatinine, Blood 1.28 mg/dL (0.60-1.20); Potassium, Blood 4.8 mmol/L (3.5-5.5)
--- NOTE | 2019-02-07 07:25 | NUR ---
pt calm and quiet. oxygen 2 l nc to keep sats greater than 90%. This AM sat 91 to 93% on room air. Denies pain or acute distress. Had upper endo last pm with 3 varicies banded. Gastric nodules bx sent. Roused to alertness by this AM.
--- NOTE | 2019-02-07 10:20 | NUR ---
Pt visit this AM. Prior to visit Pt's Amalia expresses concerns the [facility] not [facility] until he visits with Dr Mclean in his office. Relayed this concern with laboratory animal care veterinarian Jori. Jori will investigate issue. Pt is resting in bed and denies pain at this time. He has a non productive cough. Pt request's assistance with getting rid of cough. Instructed Pt discussion will be made with bedside nurse and hospitalist. Briefly engaged in discussion regarding hospice with educating of choice for hospice at anytime he chooses. Pt at this time is not very receptive to conversation due to cough. No other concerns reported at this time. Spoke with bedside nurse Nick discussed case and concerns. Nick reports Dr Ogden plan to visit with Pt soon and discuss goals of care. Palliative Care will F/U with Pt when hospitalist visits.
--- NOTE | 2019-02-07 11:49 | NUR ---
Pt visit this AM with this RN and Dr Ogden. Pt resting in bed and Amalia at bedside. Dr Ogden educated Pt and of current condition and prognosis. Dr Ogden answers questions and discusses options for goals of care. Hospice given as choice with Pt agreeing with hospice. Educated on hospice philosophy. Dr Ogden suggest to have conversation with Pt's daughter. Once conversation has taken place hospice referral will be placed. Educated on comfort care as an option as well. Will place comfort care order after family discussion later today. Privided brochures of hospice agencies to choose from. No other concerns reported at this time. Spoke with bedside nurse Nick and discussed plan. Palliative Care will remain available.
--- NOTE | 2019-02-07 12:12 | NUR ---
PATIENTS LUNCH TRAY WAS HELD DUE TO NOT BEING ABLE TO EAT AT AT THIS TIME. RN NOTIFIED.
--- NOTE | 2019-02-07 14:23 | NUR ---
F/U visit this afternoon. Pt's daughter Amee and Amalia at bedside. Pt resting in bed with eyes closed. Pt remains with his eyes closed throughout visit. Answered questions, concerns, and offered emotional support. Family is agreeable with Pt's wishes to be placed on comfort care and home with hospice. Educated on hospice and comfort care philosophy with V/U made by family. Amalia requests a day or two to set up the house for the hospital bed and Pt's arrival when discharged. Educated on the need for support once Pt is home. Amalia reports she would be the only one at the home. Discussed [facility] clinical psychiatrist program and family expresses interest. Instructed family to contact palliative care with any questions or concerns. Family prefers [facility]. No other concerns reported at this time. Spoke with caremanjulieta Wynn, discussed plan, [facility] caregiver program, and equipement needed. Spoke with Dr Ogden and discussed case. Placed comfort care order, comfort care order set, and discontinued maintenance medications per V/O from Dr Ogden. Spoke with bedside nurse Nick discussed case, and reviewed medications. Palliative Care will remain available.
--- NOTE | 2019-02-07 16:42 | NUR ---
Spiritual Care inital note: Mr. Villela said very little to me. His and dtr were pleasantly dismissive. Later in afternoon, I noticed spouse outside of room in tears. She allowed me to hold her while she wept. Provided gentle guidance counselor and emotional affirmation. However, she did not want more than this. Pt and family appear emotionally guarded. Advised lag screwer services available to provide non-sabianism guidance counselor if they so desired.
--- NOTE | 2019-02-07 16:46 | NUR ---
SHIFT SUMMARY: PT IS ALERT TO SELF, SITUATION AND FAMILY. PT IS FATIGUED AND HAS GENERAL MALAISE WITH PALLOR. DR SPRINGER MET WITH PT AND FAMILY ALONG WITH PALLIATIVE CARE RN AND THE PT DECIDED HE WOULD LIKE TO START COMFORT CARE WITH THE PLAN TO DC HOME ON HOSPICE ONCE THE DAUGHTER PUTS THINGS IN PLACE AT HIS HOME. PT C/O PAIN X 1 AND PAIN MEDS WERE GIVEN ORDERED AND PT FELL ASLEEP SHORTLY AFTER. PT IS ABLE TO MAKE HIS NEEDS KNOWN BUT CONTINUES TO NEED FREQUENT ROUNDING BY NURSING STAFF. AND DAUGHTER HAVE BEEN AT BEDSIDE MOST OF THE DAY.
--- NOTE | 2019-02-07 19:51 | NUR ---
REPORT TAKEN FROM SABINA RN. PT RESTING AT THIS TIME, APPEARS COMFOTABLE. NO S/S OF DISTRESS. WILL CONTINUE TO MONITOR.
--- NOTE | 2019-02-07 20:39 | NUR ---
SANDOSTATIN AND PROTONIX GTT/COMFORT CARE PT STILL HAS SANDOSTATIN AND PROTONIX DRIP ORDERED. WHEN WE CAME ONTO SHIFT AND WENT INTO THE ROOM NICOLE ALMARAZ, AND THIS RN NOTICED THAT PT HAD NEITHER ONE RUNNING. WE WERE TOLD BY SABINA ALMARAZ THAT THE WANTED TO CONTINUE BOTH FOR COMFORT. HOWEVER, IN THE 'S NOTES PT STATES THAT HE DID NOT WANT TO CONTINUE SANDOSTATIN. CALLED LING BERGER NP TO GET FURTHER CLARIFICATION. SHE STATES THAT SHE WOULD LIKE TO CONTINUE THEM BOTH FOR NOW SINCE THEY COULD OFFER COMFORT. IF THE PT REFUSES THAT'S OK, AND THAT THE DAY ATTENDING CAN DECIDE WHAT THEY WANT TO DO TOMORROW. SANDOSTATIN INFUSING AT THIS TIME. WILL HANG IV PROTNIX. NEW IV ESTABLISHED TO LEFT HAND FOR PROTONIX. SANDOSTAIN INFUSING IN THE RIGHT ARM. PT WANTS TO CONTINUE BOTH SANDOSTATIN GTT AND PROTONIX.
--- NOTE | 2019-02-08 03:16 | NUR ---
REPOSITIONING PT HAS SLEPT COMFORTABLY FOR MOST OF THE NIGHT. NO COMPLAINTS OF PAIN. HE HAS REFUSED REPOSITONING EACH TIME STAFF HAS ASKED. PT ANSWERS QUESTIONS APPROPRIATLY. SLEEPS MOST OF THE TIME, BUT AWAKES TO VERBAL STIMULI.
--- NOTE | 2019-02-08 05:56 | NUR ---
SHIFT SUMMARY: Comfort measures through the night. Slept minimally. Voice very quiet. Appears withdrawn. Responding appropriately to questions. Has denied pain all night. Refused all but a couple offers to reposition. No SOB. HOB elevated all night per pt request. Call light in reach.
--- NOTE | 2019-02-08 11:05 | NUR ---
PER SANKET HAYNES, NO UA NEEDED FOR RIDER CATHETER INSERTION PROTOCOL, SINCE PT IS COMFORT CARE
--- NOTE | 2019-02-08 18:32 | NUR ---
SHIFT SUMMARY MARIA L WAS ALERT AND MOSTLY ORIENTED THIS SHIFT, HAS GOTTEN PROGRESSIVELY MORE CONFUSED THE DAY HAS GONE ON. FAMILY AT BEDSIDE. DENIES PAIN. PRODUCTIVE COUGH, COUGH MED GIVEN. ASPIRATED ON WATER, ENCOURAGED PT AND HIS FAMILY TO ENCOURAGE CHIN TUCK IF HE WANTS TO DRINK. ONLY TURNED A COUPLE OF TIMES, HE DECLINED ALL EXCEPT TWICE. BOTTOM SKIN RED BUT INTACT. INCONTINENT STOOL TWICE. RIDER PLACED PER PT REQUEST FOR COMFORT. POWERGLIDE AND PIV REMOVED. TO DC WITH HOSPICE TOMORROW AT 10AM. CALL LIGHT IN REACH, FREQUENT CHECKS
--- NOTE | 2019-02-09 02:36 | NUR ---
PATIENT RESTING IN BED WITH EYES CLOSED
--- NOTE | 2019-02-09 03:48 | NUR ---
PATIENT SLEEPING IN BED
--- NOTE | 2019-02-09 04:41 | NUR ---
SHIFT SUMMARY NO ACUTE EVENTS OVERNIGHT. PATIENT DISORIENTED, UNABLE TO ANSWER QUESTIONS APPROPRIATELY. WHEN ASKED IF HE WAS IN PAIN OR NEEDED PAIN MEDICATION THE PATIENT WOULD MUMBLE SOMETHING THEN SAY NO. PATIENT NOTICEABLY COUGHING WHEN TAKING ALL PO INTAKE. RIDER PATENT AND DRAINING LISA COLORED FLUID . WILL CONTINUE TO MONITOR AND REPORT TO ONCOMING RN.
[2019-02-09] MEDS ORDERED: ATROPINE 0.01%-10 ML SL (09:22)
[2019-02-09] MEDS ORDERED: ACET325 PO (09:22)
[2019-02-09] MEDS ORDERED: BENZ100A PO (09:23)
[2019-02-09] MEDS ORDERED: CODEINE-GUAIFE120 ML PO (09:24)
[2019-02-09] MEDS ORDERED: LORA1 PO (09:24)
[2019-02-09] MEDS ORDERED: Transderm-Scop1 EACH TD (09:25)
[2019-02-09] MEDS ORDERED: MORP20L SL (09:25)
[2019-02-09] MEDS ORDERED: TRAM50 PO (09:26)
--- NOTE | 2019-02-09 09:52 | NUR ---
DISCHARGE INSTRUCTIONS REVIEWED WITH PATIENT BOTH VERBALLY AND A PRINTOUT. PATIENT WITHOUT ANY QUESTIONS. PATIENT TO BE DISCHARGED HOME WITH HOSPICE.
--- NOTE | 2019-02-09 10:50 | NUR ---
pATIENT DISCHARGED WITH [facility]. GOING HOME WITH HOSPICE.
== END 2019-02-09 10:48 | disposition hospice, home (50) | DRG 853 ==
LOC: ER 19:15 → ICUE 19:16 → PCU 19:16 → ICUE 01-26 15:54 → MEDS 01-26 16:22 → ICUE 01-31 11:17 → MEDS 02-03 14:12
PROVIDERS: Hospitalist; Internal Medicine; Internal Medicine Cardiovascular Disease; Internal Medicine Hematology & Oncology; Physician Assistant; ADMIT Internal Medicine
PROC: 5A1223Z Performance of Cardiac Pacing, Continuous (ICD-10-PCS; 2019-01-26)
PROC: 0JH606Z Insertion of Pacemaker, Dual Chamber into Chest Subcutaneous Tissue and Fascia, Open Approach (ICD-10-PCS; principal; 2019-02-01)
PROC: 02HK3JZ Insertion of Pacemaker Lead into Right Ventricle, Percutaneous Approach (ICD-10-PCS; 2019-02-01)
PROC: 3E0132A Introduction of Anti-Infective Envelope into Subcutaneous Tissue, Percutaneous Approach (ICD-10-PCS; 2019-02-01)
PROC: 06L38CZ Occlusion of Esophageal Vein with Extraluminal Device, Via Natural or Artificial Opening Endoscopic (ICD-10-PCS; 2019-02-06)
PROC: 0DB68ZX Excision of Stomach, Via Natural or Artificial Opening Endoscopic, Diagnostic (ICD-10-PCS; 2019-02-06)
PROC: 0DD68ZX Extraction of Stomach, Via Natural or Artificial Opening Endoscopic, Diagnostic (ICD-10-PCS; 2019-02-06)
DX: A41.9 Sepsis, unspecified organism (principal); J18.1 Lobar pneumonia, unspecified organism; I85.11 Secondary esophageal varices with bleeding; I48.20 Chronic atrial fibrillation, unspecified; K62.5 Hemorrhage of anus and rectum; C22.0 Liver cell carcinoma; C79.9 Secondary malignant neoplasm of unspecified site; J93.9 Pneumothorax, unspecified; R04.0 Epistaxis; E83.52 Hypercalcemia; R91.8 Other nonspecific abnormal finding of lung field; I49.5 Sick sinus syndrome; Z51.5 Encounter for palliative care; K74.60 Unspecified cirrhosis of liver; I10 Essential (primary) hypertension
CPT/HCPCS: 0099U; 33207; 33210; 36415; 51702; 71045; 71046; 80048; 80053; 80202; 82105; 83605; 83735; 83880; 84145; 84484; 85007; 85025; 85027; 85060; 86850; 86900; 86901; 87040; 87070; 87205; 88305; 88341; 88342; 93005; 93010; 94760; 96361; 96365; 96366; 96367; 96368; 96372; 97110; 97162; 97530; 99152; 99153; 99285-25; A9270; C1751; C1781; C1786; C1894; C1898; C9113; G0378; J0282; J0456; J0461; J0630; J0690; J0696; J1160; J1265; J1644; J1650; J1956; J2250; J2354; J2405; J2543; J2704; J3010; J3370; J7030; J7040; J7050; J7060; J7120